=== PATIENT | male | born 1995 | race Two or more races ===

== ENCOUNTER 2018-10-02 19:19 | Inpatient (IN) | payer MEDICAID ==
[~2018-10-02] VITALS: Ht 172.7 cm; Wt 116.1 kg
[2018-10-02] MEDS ORDERED: METFORMIN HCL500 M1 ORAL (19:26)
[2018-10-02 19:32] VITALS: BP 130/63
[2018-10-02] MEDS ORDERED: Sodium Chloride 3,300 ML IVLG ONE (19:45)
[2018-10-02] MEDS ORDERED: Ketorolac 30mg Inj IV ONE (19:45)
[2018-10-02] MEDS ORDERED: Isovue-300 100ml vial INJ PRN (19:45)
--- NOTE | 2018-10-02 20:08 | NUR ---
ED Nurse Note: Patient refused pain medication, Toradol. Will waist medication.
[2018-10-02 20:25] LABS: APPEARANCE,URINE CLEAR; BILIRUBIN, URINE NEGATIVE (NEGATIVE); COLOR,URINE PALE YELLOW; GLUCOSE, URINE (UA) NEGATIVE (NEGATIVE); KETONES,URINE NEGATIVE (NEGATIVE); LEUKOCYTE ESTERASE ,URINE NEGATIVE (NEGATIVE); NITRITE,URINE NEGATIVE (NEGATIVE); PH,URINE 7 (4.5-8.0); PROTEIN,URINE NEGATIVE (NEGATIVE); UROBILINOGEN,URINE NORMAL MG/DL (0.0-1.0)
[2018-10-02 20:25] LABS: ANION GAP 11 mmol/L (5-15); BLOOD UREA NITROGEN 7 mg/dL (7-18); CARBON DIOXIDE 28 MMOL/L (21-32); CHLORIDE 101 MMOL/L (98-107); POTASSIUM 3.4 MMOL/L (3.5-5.1); SODIUM 139 MMOL/L (136-145)
[2018-10-02 20:27] LABS: HEMATOCRIT 46.4 % (42.0-52.0); HEMOGLOBIN 16.1 G/DL (14.2-18.0); MEAN CORPUSCULAR VOLUME 86 FL (80-99); PLATELET COUNT 241 K/UL (150-450); RED BLOOD COUNT 5.38 M/UL (4.70-6.10); RED CELL DISTRIBUTION WIDTH 11.5 % (11.6-14.8); WHITE BLOOD COUNT 18.2 K/UL (4.8-10.8)
[2018-10-02 20:35] LABS: ALANINE AMINOTRANSFERASE 101 U/L (12-78); ALBUMIN 4.3 G/DL (3.4-5.0); ALBUMIN/GLOBULIN RATIO 0.8 (1.0-2.7); ALKALINE PHOSPHATASE 114 U/L (46-116); ASPARTATE AMINO TRANSFERASE 29 U/L (15-37); BILIRUBIN,TOTAL 1.5 MG/DL (0.2-1.0)
[2018-10-02 20:45] LABS: BILIRUBIN,DIRECT 0.2 MG/DL (0.0-0.3)
--- NOTE | 2018-10-02 21:20 | Consultation ---
History of Present Illness General Date patient seen: October 02, 2018 Reason for Hospitalization: Abdominal Pain Present Illness HPI This is a very pleasant 22 year old male with history of DM who presented to ED with complaints of worsening abdominal pain. States pain began 1 week ago and since has worsened so he decided to come for evaluation. pain described as cramping lower abdominal pain in suprapubic and RLQ area. Initially believed he may be constipated and took laxative without relief. no n/v. subjective fevers. no similar episodes prior. on exam with RLQ tenderness. surgery called to evaluate and assist with care. patient seen, chart reviewed, patient examined. Allergies: Coded Allergies: No Known Allergies (Unverified , 10/02/18) Medication History Scheduled Metformin Hcl* (Metformin Hcl*), 500 MG ORAL TWICE A DAY, (Reported) Patient History History Provided By: Patient, Medical Record Healthcare decision maker Resuscitation status Advanced Directive on File Past Medical/Surgical History Past Medical/Surgical History: (1) Abdominal pain Review of Systems Review of Symptoms General ROS: no weight loss or fever Psychological ROS: no depression or mood changes, no memory loss Ophthalmic ROS: no visual changes or eye irritation ENT ROS: no nasal congestion, hearing loss, dizziness Allergy and Immunology ROS: no allergic symptoms or urticaria Hematological and Lymphatic ROS: no swollen glands, unusual bleeding or bruising Endocrine ROS: no polyuria, polydipsia, weight changes, temperature intolerance Respiratory ROS: no cough, shortness of breath, or wheezing Cardiovascular ROS: no chest pain or dyspnea on exertion Gastrointestinal ROS: abdominal pain, no bright red blood in stool. Musculoskeletal ROS: no myalgias or arthralgias Neurological ROS: no TIA or stroke symptoms Dermatological ROS: no new or changing skin lesions, rashes or pruritis Physical Exam Physical Exam General appearance: alert, cooperative, no distress, appears stated age Head: Normocephalic, without obvious abnormality, atraumatic Eyes: conjunctivae/corneas clear. PERRL, EOM's intact. Fundi benign Throat: Lips, mucosa, and tongue normal. Teeth and gums normal Neck: supple, symmetrical, trachea midline, no adenopathy, thyroid: not enlarged, symmetric, no tenderness/mass/nodules, no carotid bruit and no JVD Lungs: clear to auscultation bilaterally Heart: regular rate and rhythm, S1, S2 normal, no murmur, click, rub or gallop Abdomen: soft, mild RLQ tender with mild rebound. Bowel sounds normal. No masses, no organomegaly Extremities: extremities normal, atraumatic, no cyanosis or edema Pulses: 2+ and symmetric Skin: Skin color, texture, turgor normal. No rashes or lesions Neurologic: Grossly normal Last 24 Hour Vital Signs Date Time Temp Pulse Resp B/P (MAP) Pulse Ox O2 Delivery O2 Flow Rate FiO2 10/02/18 19:32 104 18 Room Air 10/02/18 19:32 101.5 18 130/63 98 Room Air 10/02/18 19:22 101.5 104 18 98 Room Air Laboratory Tests Test 10/02/18 19:35 10/02/18 19:40 White Blood Count 18.2 K/UL (4.8-10.8) H Red Blood Count 5.38 M/UL (4.70-6.10) Hemoglobin 16.1 G/DL (14.2-18.0) Hematocrit 46.4 % (42.0-52.0) Mean Corpuscular Volume 86 FL (80-99) Mean Corpuscular Hemoglobin 29.9 PG (27.0-31.0) Mean Corpuscular Hemoglobin Concent 34.6 G/DL (32.0-36.0) Red Cell Distribution Width 11.5 % (11.6-14.8) L Platelet Count 241 K/UL (150-450) Mean Platelet Volume 7.4 FL (6.5-10.1) Neutrophils (%) (Auto) % (45.0-75.0) Lymphocytes (%) (Auto) % (20.0-45.0) Monocytes (%) (Auto) % (1.0-10.0) Eosinophils (%) (Auto) % (0.0-3.0) Basophils (%) (Auto) % (0.0-2.0) Neutrophils % (Manual) Pending Lymphocytes % (Manual) Pending Platelet Estimate Pending Platelet Morphology Pending Sodium Level 139 MMOL/L (136-145) Potassium Level 3.4 MMOL/L (3.5-5.1) L Chloride Level 101 MMOL/L (98-107) Carbon Dioxide Level 28 MMOL/L (21-32) Anion Gap 11 mmol/L (5-15) Blood Urea Nitrogen 7 mg/dL (7-18) Creatinine 1.0 MG/DL (0.55-1.30) Estimat Glomerular Filtration Rate > 60 mL/min (>60) Glucose Level 111 MG/DL (74-106) H Lactic Acid Level 0.70 mmol/L (0.4-2.0) Calcium Level 10.0 MG/DL (8.5-10.1) Total Bilirubin 1.5 MG/DL (0.2-1.0) H Direct Bilirubin 0.2 MG/DL (0.0-0.3) Aspartate Amino Transf (AST/SGOT) 29 U/L (15-37) Alanine Aminotransferase (ALT/SGPT) 101 U/L (12-78) H Alkaline Phosphatase 114 U/L (46-116) Total Protein 9.5 G/DL (6.4-8.2) H Albumin 4.3 G/DL (3.4-5.0) Globulin 5.2 g/dL Albumin/Globulin Ratio 0.8 (1.0-2.7) L Lipase 98 U/L (73-393) Urine Color Pale yellow Urine Appearance Clear Urine pH 7 (4.5-8.0) Urine Specific [place] 1.005 (1.005-1.035) Urine Protein Negative (NEGATIVE) Urine Glucose (UA) Negative (NEGATIVE) Urine Ketones Negative (NEGATIVE) Urine Blood Negative (NEGATIVE) Urine Nitrite Negative (NEGATIVE) Urine Bilirubin Negative (NEGATIVE) Urine Urobilinogen Normal MG/DL (0.0-1.0) Urine Leukocyte Esterase Negative (NEGATIVE) Height (Feet): 5 Height (Inches): 8.00 Weight (Pounds): 245 Medications Current Medications Medications (Trade) Dose Ordered Sig/Carissa Route PRN Reason Start Time Stop Time Status Last Admin Dose Admin Iopamidol (Isovue-300 100ml) 100 ml NOW PRN INJ Radiology Procedure 10/02/18 19:45 Assessment/Plan Problem List: (1) Abdominal pain Assessment & Plan: 22 year old male with RLQ/suprapubic abdominal pain. no n/ v. Febrile, tachy, HD stable. Leukocytosis 18k abnormal labs CT scan ordered and pending. DDx include colitis vs appendicitis vs enteritis CT With acute appendicitis NPO IV fluids Admit to medicine IV Abx AM labs Consent To OR for lap vs open appendectomy ICD Codes: R10.9 - Unspecified abdominal pain SNOMED: [id number] Warren Moreira October 02, 2018 21:20
[2018-10-02] MEDS ORDERED: Mylanta II UD 30ml ORAL PRN (21:45)
[2018-10-02] MEDS ORDERED: Morphine Sulfate 2mg/ml Inj(IV/IM USE ONLY) IVP PRN ×3 (21:45→22:15)
[2018-10-02] MEDS ORDERED: Morphine Sulfate 4mg/ml Inj (IV USE ONLY) IVP PRN (21:45)
[2018-10-02] MEDS ORDERED: Milk of Magnesia 30ml Ud ORAL PRN (21:45)
--- NOTE | 2018-10-02 22:10 | Emergency Room Report ---
History of Present Illness General Chief Complaint: Abdominal Pain Source: Patient, Medical Record Present Illness HPI 22-year-old male presents ED for evaluation. Complaining of abdominal pain started one week ago. Pain is localized to right lower quadrant, sharp, 9 out of 10, nonradiating. Also noted having fever previously. febrile in triage. Denies chest pain or shortness of breath. Denies any diarrhea. No other aggravating relieving factors. Denies any other associated symptoms Allergies: Coded Allergies: No Known Allergies (Unverified , 10/02/18) Patient History Past Medical History: DM Past Surgical History: none Pertinent Family History: none Social History: Denies: smoking, alcohol use, drug use Immunizations: UTD Reviewed Nursing Documentation: PMH: Agreed; PSxH: Agreed Nursing Documentation-PMH Hx Diabetes: Yes Review of Systems All Other Systems: negative except mentioned in HPI Physical Exam Vital Signs Date Time Temp Pulse Resp B/P (MAP) Pulse Ox O2 Delivery O2 Flow Rate FiO2 10/02/18 19:22 101.5 104 18 98 Room Air 10/02/18 19:32 130/63 Sp02 EP Interpretation: reviewed, normal General Appearance: no apparent distress, alert, GCS 15, non-toxic Head: normocephalic, atraumatic Eyes: bilateral eye normal inspection, bilateral eye PERRL ENT: hearing grossly normal, normal pharynx, no angioedema, normal voice Neck: full range of motion, supple/symm/no masses Respiratory: chest non-tender, lungs clear, normal breath sounds, speaking full sentences Cardiovascular #1: regular rate, rhythm, no edema Cardiovascular #2: 2+ carotid (R), 2+ carotid (L), 2+ radial (R), 2+ radial (L) , 2+ dorsalis pedis (R), 2+ dorsalis pedis (L) Gastrointestinal: normal bowel sounds, soft, non-distended, no guarding, no rebound, tenderness - RLQ Rectal: deferred Genitourinary: normal inspection, no CVA tenderness Musculoskeletal: back normal, gait/station normal, normal range of motion, non- tender Neurologic: alert, oriented x3, responsive, motor strength/tone normal, sensory intact, speech normal Psychiatric: judgement/insight normal, memory normal, mood/affect normal, no suicidal/homicidal ideation Reflexes: 3+ bicep (R), 3+ bicep (L), 3+ tricep (R), 3+ tricep (L), 3+ knee (R) , 3+ knee (L) Skin: normal color, no rash, warm/dry, well hydrated Lymphatic: no adenopathy Medical Decision Making Diagnostic Impression: Primary Impression: Appendicitis Qualified Codes: K35.80 - Unspecified acute appendicitis ER Course Hospital Course 22-year-old M presents to ED with RLQ pain with fever Differential diagnoses include: Appendicitis, cholecystitis, small bowel obstruction Clinical course Patient placed on stretcher. cafeteria monitor. After initial history and physical I ordered labs, IV fluids, UA, pain medication and CT scan Labs - leukocytosis noted, Hb/Hct stable. electrolytes ok. CT abdomen and pelvis - appendicits Antibiotics given. Case discussed with Dr. Moreira and he agreed to take the patient to the OR. Case discussed with Dr. Meza and he agreed to accept the patient to his service for further care and support I feel this is a highly complex case requiring extensive working including EKG/ Rhythm strip, Xray/CT/US, Blood/urine lab work, repeat exams while in ED, and administration of strong opiates/narcotics for pain control, admission to hospital or close patient follow up. Diagnosis - appendicitis admitted to floor in serious condition Labs Test 10/02/18 19:35 10/02/18 19:40 White Blood Count 18.2 K/UL (4.8-10.8) Red Blood Count 5.38 M/UL (4.70-6.10) Hemoglobin 16.1 G/DL (14.2-18.0) Hematocrit 46.4 % (42.0-52.0) Mean Corpuscular Volume 86 FL (80-99) Mean Corpuscular Hemoglobin 29.9 PG (27.0-31.0) Mean Corpuscular Hemoglobin Concent 34.6 G/DL (32.0-36.0) Red Cell Distribution Width 11.5 % (11.6-14.8) Platelet Count 241 K/UL (150-450) Mean Platelet Volume 7.4 FL (6.5-10.1) Neutrophils (%) (Auto) % (45.0-75.0) Lymphocytes (%) (Auto) % (20.0-45.0) Monocytes (%) (Auto) % (1.0-10.0) Eosinophils (%) (Auto) % (0.0-3.0) Basophils (%) (Auto) % (0.0-2.0) Differential Total Cells Counted 100 Neutrophils % (Manual) 84 % (45-75) Lymphocytes % (Manual) 12 % (20-45) Monocytes % (Manual) 4 % (1-10) Eosinophils % (Manual) 0 % (0-3) Basophils % (Manual) 0 % (0-2) Band Neutrophils 0 % (0-8) Platelet Estimate Adequate Platelet Morphology Normal Red Blood Cell Morphology Normal Sodium Level 139 MMOL/L (136-145) Potassium Level 3.4 MMOL/L (3.5-5.1) Chloride Level 101 MMOL/L (98-107) Carbon Dioxide Level 28 MMOL/L (21-32) Anion Gap 11 mmol/L (5-15) Blood Urea Nitrogen 7 mg/dL (7-18) Creatinine 1.0 MG/DL (0.55-1.30) Estimat Glomerular Filtration Rate > 60 mL/min (>60) Glucose Level 111 MG/DL (74-106) Lactic Acid Level 0.70 mmol/L (0.4-2.0) Calcium Level 10.0 MG/DL (8.5-10.1) Total Bilirubin 1.5 MG/DL (0.2-1.0) Direct Bilirubin 0.2 MG/DL (0.0-0.3) Aspartate Amino Transf (AST/SGOT) 29 U/L (15-37) Alanine Aminotransferase (ALT/SGPT) 101 U/L (12-78) Alkaline Phosphatase 114 U/L (46-116) Total Protein 9.5 G/DL (6.4-8.2) Albumin 4.3 G/DL (3.4-5.0) Globulin 5.2 g/dL Albumin/Globulin Ratio 0.8 (1.0-2.7) Lipase 98 U/L (73-393) Urine Color Pale yellow Urine Appearance Clear Urine pH 7 (4.5-8.0) Urine Specific [place] 1.005 (1.005-1.035) Urine Protein Negative (NEGATIVE) Urine Glucose (UA) Negative (NEGATIVE) Urine Ketones Negative (NEGATIVE) Urine Blood Negative (NEGATIVE) Urine Nitrite Negative (NEGATIVE) Urine Bilirubin Negative (NEGATIVE) Urine Urobilinogen Normal MG/DL (0.0-1.0) Urine Leukocyte Esterase Negative (NEGATIVE) CT/MRI/US Diagnostic Results CT/MRI/US Diagnostic Results : Imaging Test Ordered: CT A/P Impression 1.5 cm appendix thickened. No abscess. Last Vital Signs Date Time Temp Pulse Resp B/P (MAP) Pulse Ox O2 Delivery O2 Flow Rate FiO2 10/02/18 19:32 104 18 Room Air 10/02/18 19:32 101.5 130/63 98 Status: improved Disposition: ADMITTED INPATIENT Condition: Serious Referrals: [facility],REFERRING (PCP) Bravo Schuster MD October 02, 2018 22:10
[2018-10-02] MEDS ORDERED: Piperacillin/Tazobactam 3.375 GM in NS 110 ML IVPB ONE (22:15)
[2018-10-02 23:14] VITALS: BP 141/82
--- NOTE | 2018-10-02 23:15 | NUR ---
NURSE NOTES: Pt transported to unit from ER via w/c w/belongings accounted for and family at bedside. Pt A&Ox4, VSS, and in no apparent distress at this time; pt c/o 4/10 abdominal pain but would not like any analgesics at this time. IV site intact/asymptomatic & skin intact. Will continue to monitor.
[2018-10-02] MEDS ORDERED: ATORVASTATIN CA20 MG ORAL (23:24)
--- NOTE | 2018-10-02 23:30 | NUR ---
NURSE NOTES: Left vm for Dr. Meza re:pt's home meds; will await call back.
[2018-10-03] VITALS (16 sets, daily range): BP systolic 121–142; BP diastolic 57–92
[2018-10-03] MEDS: Piperacillin/Tazobactam 3.375 GM in NS 110 ML IVPB SCH ×3 (06:03→20:49)
[2018-10-03 06:23] LABS: BASOPHILS % (AUTO) 0.5 % (0.0-2.0); EOSINOPHILS % (AUTO) 0.1 % (0.0-3.0); HEMATOCRIT 43.4 % (42.0-52.0); LYMPHOCYTES % (AUTO) 9.5 % (20.0-45.0); MEAN CORPUSCULAR VOLUME 89 FL (80-99); MONOCYTES % (AUTO) 7.6 % (1.0-10.0); NEUTROPHILS % (AUTO) 82.3 % (45.0-75.0); PLATELET COUNT 223 K/UL (150-450); RED CELL DISTRIBUTION WIDTH 11.6 % (11.6-14.8); WHITE BLOOD COUNT 17.9 K/UL (4.8-10.8)
[2018-10-03 06:49] LABS: ALANINE AMINOTRANSFERASE 81 U/L (12-78); ALBUMIN 3.7 G/DL (3.4-5.0); ALBUMIN/GLOBULIN RATIO 0.8 (1.0-2.7); ALKALINE PHOSPHATASE 99 U/L (46-116); ANION GAP 9 mmol/L (5-15); ASPARTATE AMINO TRANSFERASE 24 U/L (15-37); BILIRUBIN,TOTAL 1.8 MG/DL (0.2-1.0); CALCIUM 9.5 MG/DL (8.5-10.1); CARBON DIOXIDE 28 MMOL/L (21-32); CHLORIDE 103 MMOL/L (98-107); CREATININE 0.8 MG/DL (0.55-1.30); POTASSIUM 3.9 MMOL/L (3.5-5.1); SODIUM 140 MMOL/L (136-145)
[2018-10-03 06:51] LABS: BILIRUBIN,DIRECT 0.2 MG/DL (0.0-0.3)
[2018-10-03 06:54] LABS: BLOOD UREA NITROGEN 5 mg/dL (7-18)
--- NOTE | 2018-10-03 07:40 | NUR ---
HAND-OFF: Report given to Patricio Nicole RN.
--- NOTE | 2018-10-03 07:45 | NUR ---
NURSE NOTES: Patient sitting in bed awake. Complain of mild pain and will continue to monitor. Skin intact and dry. IV dressing intact and dry. Bed lowest position. Call light within reach. Will continue to monitor.
--- NOTE | 2018-10-03 09:14 | Diagnostic Imaging Report ---
Indication: Abdominal pain Technique: Continuous helical transaxial imaging of the abdomen and pelvis was obtained from the lung bases to the pubic symphysis during intravenous contrast administration. Coronal 2-D reformats were also obtained. Study obtained in a Siemens sensation [address] Automatic Exposure Control was utilized. Total Dose length Product (DLP): 1093.[address] Dose Index Volume (CTDIvol): 18.6 mGy Comparison: None Findings: There is a moderate degree of inflammation in the right lower quadrant surrounding a dilated appendix measuring 1.4 cm in diameter. The wall of the appendix is ill-defined, enhancing and there is some fluid accumulated within the retrovesical space likely associated with the inflammation. There is no abscess identified. Small lymph nodes are seen in the mesentery likely reactive. The remainder the examination is normal. The gallbladder, liver and spleen, pancreas, adrenal glands and kidneys appear normal. There is no hydronephrosis. Bowel gas pattern is nonobstructive. Lung bases are clear. Bladder is unremarkable. IMPRESSION: Acute appendicitis with moderate inflammation. The appendix may be ruptured. Critical value communication. Findings were discussed via telephone with Dr. Schuster in the emergency department 21:31, 10/02/2018. The CT scanner at [facility] is accredited by the [employer] and the scans are performed using dose optimization techniques as appropriate to a performed exam including Automatic Exposure control.
--- NOTE | 2018-10-03 09:54 | NUR ---
NURSE NOTES: Patient off unit for surgery in stable condition. IV patent.
[2018-10-03] MEDS ORDERED: cefOXitin 2gm Inj ONE (10:43)
[2018-10-03] MEDS ORDERED: Rocuronium Bromide 50mg/5ml Inj IV ONE (10:43)
[2018-10-03] MEDS ORDERED: fentaNYL 100 mcg/2 mL IV ONE (10:44)
[2018-10-03] MEDS ORDERED: Midazolam 2mg/2ml Inj ONE (10:44)
[2018-10-03] MEDS ORDERED: Lidocaine 1% MPF 10mg/ml 5ml ONE (10:45)
[2018-10-03] MEDS ORDERED: Propofol 200mg/20ml IV ONE (10:45)
[2018-10-03] MEDS: NovoLOG Insulin Flexpen SUBQ SCH ×4 (11:30→20:44)
[2018-10-03] MEDS ORDERED: Morphine Sulfate 10mg/ml Inj ONE (11:41)
[2018-10-03] MEDS ORDERED: Glycopyrrolate 0.2mg/ml 1ml Vial ONE (11:43)
[2018-10-03] MEDS ORDERED: LR 1000ml 1,000 ML IVLG SCH (11:48)
--- NOTE | 2018-10-03 11:48 | Anethesia Preoperative Eval ---
Anesthesia Pre-op PMH/ROS General Date of Evaluation: October 03, 2018 Time of Evaluation: 10:50 Anesthesiologist: Gerald ASA Score: ASA 3 Mallampati Score Class I : Soft palate, uvula, fauces, pillars visible Class II: Soft palate, uvula, fauces visible Class III: Soft palate, base of uvula visible Class IV: Only hard plate visible Mallampati Classification: Class III Surgeon: Erlinda Diagnosis: Acute appendicitis Surgical Procedure: Appendectomy Anesthesia History: none Family History: no anesthesia problems Allergies: Coded Allergies: No Known Allergies (Unverified , 10/02/18) Medications: see eMAR Patient NPO?: Yes NPO Date: October 03, 2018 NPO Time: 0000 Past Medical History Cardiovascular: Reports: HTN; Denies: CAD, MO, valve dz, arrhythmia, other Pulmonary: Reports: RAMESH; Denies: asthma, COPD, other Gastrointestinal/Genitourinary: Reports: GERD; Denies: CRI, ESRD, other Neurologic/Psychiatric: Denies: dementia, CVA, depression/anxiety, TIA, other Endocrine: Reports: DM; Denies: hypothyroidism, steroids, other HEENT: Denies: cataract (L), cataract (R), glaucoma, DEERING (L), DEERING (R), other Hematology/Immune: Denies: anemia, DVT, bleeding disorder, other Musculoskeletal/Integumentary: Denies: OA, RA, DJD, DDD, edema, other Other: obesity PMH Narrative: as above admitted for acute abdominal pain PSxH Narrative: None Anesthesia Pre-op Phys. Exam Physician Exam Last Vital Signs Date Time Temp Pulse Resp B/P (MAP) Pulse Ox O2 Delivery O2 Flow Rate FiO2 10/03/18 09:00 Room Air 10/03/18 08:00 99.4 98 19 136/81 (99) 99 Constitutional: NAD Neurologic: CN 2-12 intact Cardiovascular: RRR Respiratory: CTA Gastrointestinal: other - tender Airway Exam Mallampati Score: Class III MO: full Neck: short Teeth: intact Dentures: no upper, no lower Anesthesia Pre-op A/P Labs Hematology Test 10/02/18 19:35 10/03/18 05:30 White Blood Count 18.2 K/UL (4.8-10.8) H 17.9 K/UL (4.8-10.8) H Red Blood Count 5.38 M/UL (4.70-6.10) 4.90 M/UL (4.70-6.10) Hemoglobin 16.1 G/DL (14.2-18.0) 15.0 G/DL (14.2-18.0) Hematocrit 46.4 % (42.0-52.0) 43.4 % (42.0-52.0) Mean Corpuscular Volume 86 FL (80-99) 89 FL (80-99) Mean Corpuscular Hemoglobin 29.9 PG (27.0-31.0) 30.7 PG (27.0-31.0) Mean Corpuscular Hemoglobin Concent 34.6 G/DL (32.0-36.0) 34.6 G/DL (32.0-36.0) Red Cell Distribution Width 11.5 % (11.6-14.8) L 11.6 % (11.6-14.8) Platelet Count 241 K/UL (150-450) 223 K/UL (150-450) Mean Platelet Volume 7.4 FL (6.5-10.1) 8.6 FL (6.5-10.1) Neutrophils (%) (Auto) % (45.0-75.0) 82.3 % (45.0-75.0) H Lymphocytes (%) (Auto) % (20.0-45.0) 9.5 % (20.0-45.0) L Monocytes (%) (Auto) % (1.0-10.0) 7.6 % (1.0-10.0) Eosinophils (%) (Auto) % (0.0-3.0) 0.1 % (0.0-3.0) Basophils (%) (Auto) % (0.0-2.0) 0.5 % (0.0-2.0) Differential Total Cells Counted 100 Neutrophils % (Manual) 84 % (45-75) H Lymphocytes % (Manual) 12 % (20-45) L Monocytes % (Manual) 4 % (1-10) Eosinophils % (Manual) 0 % (0-3) Basophils % (Manual) 0 % (0-2) Band Neutrophils 0 % (0-8) Platelet Estimate Adequate Platelet Morphology Normal Red Blood Cell Morphology Normal Coagulation Test 10/03/18 05:30 Prothrombin Time 10.8 SEC (9.30-11.50) Prothromb Time International Ratio 1.0 (0.9-1.1) Activated Partial Thromboplast Time 33 SEC (23-33) Chemistry Test 10/02/18 19:35 10/03/18 05:30 Sodium Level 139 MMOL/L (136-145) 140 MMOL/L (136-145) Potassium Level 3.4 MMOL/L (3.5-5.1) L 3.9 MMOL/L (3.5-5.1) Chloride Level 101 MMOL/L (98-107) 103 MMOL/L (98-107) Carbon Dioxide Level 28 MMOL/L (21-32) 28 MMOL/L (21-32) Anion Gap 11 mmol/L (5-15) 9 mmol/L (5-15) Blood Urea Nitrogen 7 mg/dL (7-18) 5 mg/dL (7-18) L Creatinine 1.0 MG/DL (0.55-1.30) 0.8 MG/DL (0.55-1.30) Estimat Glomerular Filtration Rate > 60 mL/min (>60) > 60 mL/min (>60) Glucose Level 111 MG/DL (74-106) H 117 MG/DL (74-106) H Lactic Acid Level 0.70 mmol/L (0.4-2.0) Calcium Level 10.0 MG/DL (8.5-10.1) 9.5 MG/DL (8.5-10.1) Total Bilirubin 1.5 MG/DL (0.2-1.0) H 1.8 MG/DL (0.2-1.0) H Direct Bilirubin 0.2 MG/DL (0.0-0.3) 0.2 MG/DL (0.0-0.3) Aspartate Amino Transf (AST/SGOT) 29 U/L (15-37) 24 U/L (15-37) Alanine Aminotransferase (ALT/SGPT) 101 U/L (12-78) H 81 U/L (12-78) H Alkaline Phosphatase 114 U/L (46-116) 99 U/L (46-116) Total Protein 9.5 G/DL (6.4-8.2) H 8.3 G/DL (6.4-8.2) H Albumin 4.3 G/DL (3.4-5.0) 3.7 G/DL (3.4-5.0) Globulin 5.2 g/dL 4.6 g/dL Albumin/Globulin Ratio 0.8 (1.0-2.7) L 0.8 (1.0-2.7) L Lipase 98 U/L (73-393) Hemoglobin A1c 5.9 % (4.3-6.0) Risk Assessment & Plan Assessment: GA with ETT PONV prevention Status Change Before Surgery: No Pre-Antibiotics Drug: Cefoxitin 2gr. Given Within 1 Hr of Incision: Yes Time Given: 11:20 Edward Duarte MD October 03, 2018 11:48
[2018-10-03] MEDS ORDERED: Meperidine 50mg/ml Inj(FOR RIGORS ONLY) IV PRN (12:00)
[2018-10-03] MEDS ORDERED: Metoclopramide 10mg/2ml Inj IVP PRN (12:00)
[2018-10-03] MEDS ORDERED: Hydromorphone 0.5mg/0.5ml inj IVP PRN (12:00)
[2018-10-03] MEDS ORDERED: Ketorolac 30mg Inj IV PRN (12:00)
--- NOTE | 2018-10-03 12:19 | NUR ---
[employer] 22 Y/O MALE FROM HOME CAME TO [facility] [place] ER CC:ABNORMAL PAIN SI:APPENDICITIS S/P LAPAROSCOPIC APPENDECTOMY VS: BP 130/63, P 104, T 101.4, RR 22, SpO2 98 WBC 18.2, K 3.4, ABDOMINAL CT: Acute appendicitis with moderate inflammation. The appendix may be ruptured. IS:NS x3.3L IVLG TORADOL 30mg IV ZOSYN 110ml IVPB ADMITTED TO MED/SURG DCP: RETURN HOME
--- NOTE | 2018-10-03 12:24 | Immediate Post-Op Evaluation ---
Immediate Post-Op Evalulation Immediate Post-Op Evalulation Procedure: Laparoscopic appendectomy Date of Evaluation: October 03, 2018 Time of Evaluation: 12:22 IV Fluids: 800 Blood Products: none Estimated Blood Loss: 50 Urinary Output: none Blood Pressure Systolic: 140 Blood Pressure Diastolic: 82 Pulse Rate: 92 Respiratory Rate: 22 O2 Sat by Pulse Oximetry: 98 Temperature (Fahrenheit): 97.7 Pain Score (1-10): 1 Nausea: No Vomiting: No Complications none Patient Status: reacts, patent, extubated, none Hydration Status: adequate Edward Duarte MD October 03, 2018 12:24
--- NOTE | 2018-10-03 12:46 | Brief Operative Note ---
Immediate Post Operative Note Operative Note Pre-op Diagnosis: acute appendicitis Procedure: lap appy Post-op Diagnosis: acute perforated appendicitis Surgeon: jacinto Anesthesiologist: dawood Anesthesia: general Specimen: yes Complications: none Condition: stable Fluids: see records Estimated Blood Loss: minimal Drains: none Implant(s) used?: No Warren Moreira October 03, 2018 12:46
--- NOTE | 2018-10-03 13:34 | Pre-Procedure Note/Attestation ---
Pre-Procedure Note/Attestation Complete Prior to Procedure Procedure Narrative: lap appy Indications for Procedure Pre-Operative Diagnosis: acute appendicitis Attestation I attest that I discussed the nature of the procedure; its benefits; risks and complications; and alternatives (and the risks and benefits of such alternatives ), prior to the procedure, with the patient (or the patient's legal loan representative). I attest that, if there was a reasonable possibility of needing a blood transfusion, the patient (or the patient's legal loan representative) was given the [facility] standardized written summary, pursuant to the Reza Rodriguez Blood Safety Act ([place] Health and Safety Code # 1645, as amended). I attest that I re-evaluated the patient just prior to the surgery and that there has been no change in the patient's H&P, except as documented below: Warren Moreira October 03, 2018 13:34
--- NOTE | 2018-10-03 13:40 | NUR ---
NURSE NOTES: Patient came back to unit in stable condition. Surgical dressing intact and dry. No complain of pain or distress at this time. IV dressing intact and dry. Bed lowest position. Call light within reach. Will continue to monitor.
[2018-10-03] MEDS: HYDROcodone/Acetamin 10/325 tab ORAL PRN ×2 (14:09→19:53)
--- NOTE | 2018-10-03 14:10 | NUR ---
*-* INSURANCE *-* ALL CLINICALS AND REVIEWS HAVE BEEN FAXED TO: NOHEMI WILSON: MARY P- [phone] F- [phone]........... REVIEW/CLINICAL
--- NOTE | 2018-10-03 16:15 | History and Physical Report ---
DATE OF ADMISSION: 10/02/2018 REASON FOR ADMISSION: 1. Abdominal pain. 2. Acute appendicitis. HISTORY OF PRESENT ILLNESS: The patient is a pleasant 22-year-old gentleman who presented overnight for urgent care of abdominal pain. It has been localized in the right lower quadrant, 9/10 pain. Nonradiating in nature. No current nausea, vomiting, or diarrhea. No chest pain. No palpitations. Noted to have acute appendicitis and was admitted for evaluation. ALLERGIES: No known drug allergies. PAST MEDICAL HISTORY: Diabetes. PAST SURGICAL HISTORY: None. SOCIAL HISTORY: No tobacco, alcohol, or illicit drug use. FAMILY HISTORY: Positive for diabetes and hypertension. REVIEW OF SYSTEMS: NEUROLOGIC: The patient denies headache, change in vision, syncope, or presyncopal episodes. CARDIOVASCULAR: No current chest pain, palpitations, or angina. PULMONARY: No difficulty breathing or productive sputum. GASTROINTESTINAL/GENITOURINARY: The patient having right lower quadrant abdominal pain. No nausea, vomiting, or diarrhea. ENDOCRINOLOGY: No night sweats, fevers, or chills. LABORATORY DATA: Labs dated 10/03/2018, sodium 140, potassium 3.9, chloride 0.8. White cell count 17.9, hemoglobin 15, platelet count 223. PHYSICAL EXAMINATION: VITAL SIGNS: Blood pressure 136/81, respiratory rate 19, pulse 98, temperature 99.4, 99% oxygen saturation on room air. GENERAL: The patient awake, alert, not otherwise in distress. HEENT: Extraocular muscles intact. No lymphadenopathy noted. CARDIOVASCULAR: S1 and S2. No rubs or gallops. PULMONARY: Clear to auscultation bilaterally. No rales, rhonchi, or wheezes. ABDOMEN: Mild tenderness, right lower quadrant. EXTREMITIES: No edema. ASSESSMENT AND PLAN: 1. Abdominal pain secondary to appendicitis. Please refer to #2. 2. Acute appendicitis. The patient was given IV antibiotics overnight, placed on an NPO status, and is pending appendectomy later this morning. 3. Diabetes mellitus. We will continue metformin and Accu-Cheks. 4. DVT prophylaxis with SCDs. Lenin Meza MD DR: SADAF :39 JOB#: [id number] CC:
--- NOTE | 2018-10-03 18:15 | NUR ---
NURSE NOTES: Patient having fever. Notified Dr. Moreira and no new order at this time. Tylenol given as ordered. Will continue to monitor.
--- NOTE | 2018-10-03 18:45 | Operative Note - Dictated ---
DATE OF OPERATION: 10/03/2018 PREOPERATIVE DIAGNOSIS: Acute appendicitis. POSTOPERATIVE DIAGNOSIS: Acute perforated appendicitis. OPERATION PERFORMED: Laparoscopic appendectomy. ATTENDING SURGEON: Warren Moreira M.D. RUBY ON RAILS ENGINEER: None. ANESTHESIOLOGIST: Edward Duarte MD. ANESTHESIA: General GETA. ESTIMATED BLOOD LOSS: Minimal. IV FLUIDS: Please see the anesthesia records. COMPLICATIONS: None. DRAINS: None. COUNTS: Sponge and needle count correct x2. WOUND CLASSIFICATION: Class 3. ANTIBIOTICS: The patient on scheduled IV antibiotics for acute active inflammatory process. INDICATIONS FOR PROCEDURE: This is a 22-year-old male who presented to the emergency department [facility] complaining worsening lower abdominal pain radiating to the right lower quadrant. The patient states the pain was for approximately a week and was identified to have a leukocytosis and CT scan consistent with acute appendicitis. Risks, benefits, and alternatives of surgery were discussed with the patient in detail who expressed understanding and consented to surgery, which was indicated and recommended. OPERATIVE NOTE: The patient was taken to the operating room and placed on the operating table in supine position with left arm tucked. All bony prominences were well padded. SCDs were placed. Preoperative time-out was taken in identifying the patient, procedure, operative staff, and surgical staff. General anesthesia was induced and the patient was intubated. No Dejesus catheter was inserted given the patient voided prior to entering the operating room. Abdomen was clipped, prepped, and draped in standard surgical fashion. An infraumbilical incision was made using a fresh #11 scalpel and carried down to the fascia which was elevated and incised. Entry into the abdomen was obtained using the open technique. A 12 mm Gary trocar was inserted and the abdomen was insufflated to 12 to 15 mmHg. The patient tolerated the insufflation well. The patient was positioned in the reverse Trendelenburg with left side down. The abdomen was inspected. In the right lower quadrant, there was a thickened inflammatory omentum draped over the right lower quadrant. Secondary trocars placed under direct visualization beginning with a 12 mm left lower quadrant followed by 5 mm suprapubic. Laparoscopic graspers were used and the omentum draped over the right lower quadrant was gently dissected off. Underlying was a appendix with mid-appendiceal perforation and some purulent succus identified. This was evacuated. Following this, the appendix was grasped and gently dissected out until the base could be identified at the confluence of the tenia. Window was made at the base of the appendix and a laparoscopic linear stapler was used and the base was divided. Following this, laparoscopic linear stapler was then used to divide the mesoappendix. Hemostasis was achieved with laparoscopic clips after the stapler was fired and there was still some oozing. Once hemostasis was identified, the pelvis and right lower quadrant were irrigated and suctioned clean. At this time, no other abnormalities were noted. Good hemostasis was noted. The staple line of the appendiceal base and mesoappendix with clips were identified with good hemostasis and viable staple line. At this time, we began the conclusion of our procedure. The appendix was placed in endoscopic retrieval bag and removed from the abdomen using the left lower quadrant port site. Secondary trocars removed under direct visualization followed by the umbilical trocar site. The umbilical trocar site fascia and left lower quadrant port site fascia were reapproximated using [id number] #0 Vicryl suture. Remaining skin incisions were cleansed and reapproximated using 4-0 Monocryl subcuticular interrupted sutures. Steri-Strips and dry dressings were applied. The patient tolerated the procedure well, was extubated and taken to postanesthetic care unit in stable condition. Warren Moreira M.D. DR: Idania JOB#: [id number] CC:
--- NOTE | 2018-10-03 19:30 | NUR ---
HAND-OFF: Report given to Jeanie NOVAK. Patient in stable condition.
--- NOTE | 2018-10-03 19:40 | NUR ---
NURSE NOTES: Received a report from KISHORE Curry. AAOX4. Able to make needs known. IV site is patent and intact. On room air. 3 surgical dressings noted on the abdomen, intact and no bleeding. Bed in lowest position. Call light within reach. Will continue to monitor.
[2018-10-04 04:00] VITALS: BP 118/82
[2018-10-04] MEDS: Piperacillin/Tazobactam 3.375 GM in NS 110 ML IVPB SCH ×3 (05:00→22:02)
[2018-10-04 06:24] LABS: HEMATOCRIT 43.6 % (42.0-52.0); HEMOGLOBIN 14.9 G/DL (14.2-18.0); MEAN CORPUSCULAR VOLUME 89 FL (80-99); PLATELET COUNT 222 K/UL (150-450); RED CELL DISTRIBUTION WIDTH 11.9 % (11.6-14.8); WHITE BLOOD COUNT 21.4 K/UL (4.8-10.8)
[2018-10-04] MEDS: NovoLOG Insulin Flexpen SUBQ SCH ×4 (06:30→21:00)
[2018-10-04 06:34] LABS: ANION GAP 8 mmol/L (5-15); BLOOD UREA NITROGEN 6 mg/dL (7-18); CALCIUM 9.5 MG/DL (8.5-10.1); CARBON DIOXIDE 29 MMOL/L (21-32); CHLORIDE 103 MMOL/L (98-107); POTASSIUM 3.8 MMOL/L (3.5-5.1); SODIUM 140 MMOL/L (136-145)
[2018-10-04] MEDS: HYDROcodone/Acetamin 10/325 tab ORAL PRN ×3 (06:55→13:43)
--- NOTE | 2018-10-04 07:10 | NUR ---
HAND-OFF: Report given to KISHORE Alfaro.
--- NOTE | 2018-10-04 07:30 | NUR ---
NURSE NOTES: Received pt from KISHORE NEGRO. Pt is alert and orient x4. pt is in RA, No SOB or acute respiratory distress noted. pt has intact iv access RAC 20G SL. All needs attended, bed is locked and is in the lowest position, call light within easy reach. will continue to monitor.
[2018-10-04 08:00] VITALS: BP 127/87
--- NOTE | 2018-10-04 08:43 | Nephrology Progress Note ---
Assessment/Plan Assessment/Plan: A/P 1) Abd Pain- please refer to #2 2) Appendicitis- s/p appy - Zosyn, WBC still elevated - per surgery 3) DVT prophylaxsis with ambulation and SCDs Subjective Date patient seen: October 04, 2018 Time patient seen: 08:41 ROS Limited/Unobtainable: No Allergies: Coded Allergies: No Known Allergies (Unverified , 10/02/18) Subjective Patient ambulating in room Objective Last 24 Hour Vital Signs Date Time Temp Pulse Resp B/P (MAP) Pulse Ox O2 Delivery O2 Flow Rate FiO2 10/04/18 08:00 98.0 76 19 127/87 (100) 99 10/04/18 07:25 98.8 10/04/18 04:00 98.8 90 18 118/82 (94) 97 10/04/18 00:29 99.6 10/03/18 23:54 100.0 116 17 130/84 (99) 95 10/03/18 21:00 Room Air 10/03/18 20:00 100.6 118 18 128/88 (101) 94 10/03/18 16:00 99.3 106 20 139/68 (91) 95 10/03/18 14:45 97.3 114 20 129/68 (88) 95 10/03/18 14:15 97.3 109 18 142/72 (95) 95 10/03/18 13:45 97.9 79 19 121/57 (78) 95 10/03/18 13:30 97.4 10/03/18 13:18 99.2 94 17 126/67 99 Nasal Cannula 3 10/03/18 13:10 91 16 140/85 100 Nasal Cannula 3 10/03/18 13:00 71 17 142/92 100 Nasal Cannula 3 10/03/18 12:55 73 15 128/74 100 Nasal Cannula 3 10/03/18 12:45 79 16 128/74 100 Simple Mask 6 10/03/18 12:30 82 15 129/79 100 Simple Mask 6 10/03/18 12:25 89 20 140/82 100 Simple Mask 6 10/03/18 12:24 92 22 98 10/03/18 12:23 97.7 99 18 138/87 100 Simple Mask 6 10/03/18 09:00 Room Air Intake and Output 10/03/18 10/04/18 18:59 06:59 Intake Total 1340 ml 580 ml Output Total 20 ml Balance 1320 ml 580 ml Intake Oral 240 ml 360 ml IV Total 1100 ml 220 ml Output Estimated Blood Loss 20 ml # Voids 1 3 # Bowel Movements 1 Laboratory Tests 10/04/18 05:25: White Blood Count 21.4H, Red Blood Count 4.90, Hemoglobin 14.9, Hematocrit 43.6 , Mean Corpuscular Volume 89, Mean Corpuscular Hemoglobin 30.4, Mean Corpuscular Hemoglobin Concent 34.2, Red Cell Distribution Width 11.9, Platelet Count 222, Mean Platelet Volume 8.3, Neutrophils (%) (Auto) , Lymphocytes (%) ( Auto) , Monocytes (%) (Auto) , Eosinophils (%) (Auto) , Basophils (%) (Auto) , Neutrophils % (Manual) [Pending], Lymphocytes % (Manual) [Pending], Platelet Estimate [Pending], Platelet Morphology [Pending], Sodium Level 140, Potassium Level 3.8, Chloride Level 103, Carbon Dioxide Level 29, Anion Gap 8, Blood Urea Nitrogen 6L, Creatinine 1.0, Estimat Glomerular Filtration Rate > 60, Glucose Level 121H, Calcium Level 9.5 Height (Feet): 5 Height (Inches): 8.00 Weight (Pounds): 256 General Appearance: no apparent distress, alert EENT: normal ENT inspection Neck: normal alignment, supple Cardiovascular: normal rate, regular rhythm Respiratory/Chest: lungs clear, normal breath sounds Abdomen: non tender, soft Edema: no edema noted Arm (L), no edema noted Arm (R), no edema noted Leg (L), no edema noted Leg (R), no edema noted Pedal (L), no edema noted Pedal (R), no edema noted Generalized Lenin Meza MD October 04, 2018 08:43
[2018-10-04] MEDS ORDERED: Labetalol 5mg/ml 20ml vial IV ONE (10:58)
[2018-10-04] MEDS ORDERED: Sterile Water Irrig 1000ml IRRIG ONE (10:58)
[2018-10-04] MEDS ORDERED: Propofol 200mg/20ml IV ONE (10:58)
[2018-10-04] MEDS ORDERED: NS Irrig 1000ml ONE (10:58)
[2018-10-04] MEDS ORDERED: Ketorolac 30mg Inj ONE (10:58)
--- NOTE | 2018-10-04 11:00 | 48 Hour Post Anesthesia Eval ---
Post Anesthesia Evaluation Procedure: Laparoscopic appendectomy Date of Evaluation: October 04, 2018 Airway: patent Nausea: No Vomiting: No Pain Intensity: 2 Hydration Status: adequate Cardiopulmonary Status: at baseline Mental Status/LOC: patient returned to baseline Post-Anesthesia Complications: 0 Follow-up care needed: N/A - further care as per primary team Isa Blevins MD October 04, 2018 11:00
[2018-10-04 12:00] VITALS: BP 141/97
--- NOTE | 2018-10-04 13:38 | NUR ---
FUEL AGENTDECISION SUPPORT MANAGER SI:APPENDICITIS S/P LAPAROSCOPIC APPENDECTOMY VS: BP 141/97, P 109, T 98.1, RR 20, SpO2 96 WBC 21.4, BUN 6 IS:NORCO 1tab ZOSYN 110ml IVPB 3E MED/SURG STATUS
--- NOTE | 2018-10-04 14:41 | NUR ---
NURSE NOTES: Dr BO is aware about WBC and other lab results and V/S, no new order. will continue to monitor.
--- NOTE | 2018-10-04 14:55 | NUR ---
*-* INSURANCE *-* ALL CLINICALS AND REVIEWS HAVE BEEN FAXED TO: NOHEMI WILSON: MARY P- [phone] 1924 F- [phone]........... REVIEW/CLINICAL
[2018-10-04 16:00] VITALS: BP 144/97
--- NOTE | 2018-10-04 16:39 | General Progress Note ---
Progress Note Progress Note Surgery Afebrile, Tachy, HD stable, Exam improved. Tolerating diet. No n/v pain improved leukocytosis. abd soft, tenderness improved. incisions c/d/i s/p lap appy for acute perforated appendicitis NOT Ready for D/C needs few days of IV abx treat as perforated appendicitis okay for diet ambulate and out of bed am labs Warren Moreira October 04, 2018 16:39
--- NOTE | 2018-10-04 16:41 | NUR ---
NURSE NOTES: Dr BO visited pt and he is aware about HR and other lab results and V/S, No new order. will continue to monitor.
--- NOTE | 2018-10-04 18:00 | NUR ---
P.T NOTE P.T EVALUATION COMPLETED. PATIENT IS BASELINE INDEPENDENT WITH ADL/FUNCTIONAL MOBILITIES AND GAIT/LOCOMOTION. INSTRUCTION PROVIDED TO PATIENT RE: DEEP BREATHING EXERCISES WELL ENCOURAGED PATIENT OOB ACTIVITIES I.E AMBULATE JULIO.POST OP. PATIENT VERBALIZED UNDERSTANDING.NO FURTHER P.T FOLLOW UP NEEDED. D/C P.T SERVICES. Addendum: 10/04/18 at 1801 by MARJAN FOSTER PT Amended: Links added.
--- NOTE | 2018-10-04 19:30 | NUR ---
HAND-OFF: Report given to KISHORE LAUREANO.
--- NOTE | 2018-10-04 19:30 | NUR ---
Report received from KISHORE Alfaro. Patient ambulating in room, visitor at bedside. No c/o pain. Bed in low position, locked, side rails up x2, call light within reach. Patient alert/oriented x4. Will continue to monitor.
[2018-10-04 20:30] VITALS: BP 133/96
[2018-10-04] MEDS ORDERED: Tubing IV Secondary IV ONE (20:44)
[2018-10-05] VITALS: BP 141/81
[2018-10-05] MEDS: HYDROcodone/Acetamin 5/325 tab ORAL PRN ×4 (00:22→14:24)
[2018-10-05] MEDS: LORazepam 1mg tab ORAL PRN ×2 (02:26→18:31)
[2018-10-05 04:00] VITALS: BP 128/93
[2018-10-05] MEDS: Piperacillin/Tazobactam 3.375 GM in NS 110 ML IVPB SCH ×3 (05:37→21:51)
[2018-10-05] MEDS: NovoLOG Insulin Flexpen SUBQ SCH ×4 (06:18→21:00)
[2018-10-05 06:35] LABS: HEMATOCRIT 41.4 % (42.0-52.0); HEMOGLOBIN 14.3 G/DL (14.2-18.0); MEAN CORPUSCULAR VOLUME 88 FL (80-99); PLATELET COUNT 237 K/UL (150-450); RED BLOOD COUNT 4.69 M/UL (4.70-6.10); RED CELL DISTRIBUTION WIDTH 11.6 % (11.6-14.8); WHITE BLOOD COUNT 21.2 K/UL (4.8-10.8)
--- NOTE | 2018-10-05 07:30 | Nephrology Progress Note ---
Assessment/Plan Assessment/Plan: A/P 1) Appendicitis- s/p appy - Zosyn, HD stable , tachycardic - DC once cleared by surgery 2) DVT prophylaxsis with ambulation and SCDs Subjective Date patient seen: October 05, 2018 Time patient seen: 07:27 ROS Limited/Unobtainable: No Allergies: Coded Allergies: No Known Allergies (Unverified , 10/02/18) Subjective Patient ambulating in no acute distress Objective Last 24 Hour Vital Signs Date Time Temp Pulse Resp B/P (MAP) Pulse Ox O2 Delivery O2 Flow Rate FiO2 10/05/18 04:00 99.2 99 17 128/93 (105) 95 10/05/18 00:00 98.2 94 19 141/81 (101) 95 10/04/18 22:00 99.0 10/04/18 21:27 99.0 10/04/18 21:00 99.5 74 17 10/04/18 21:00 Room Air 10/04/18 20:30 101.3 75 16 133/96 (108) 95 10/04/18 16:00 98.7 109 22 144/97 (113) 97 10/04/18 14:13 98.1 10/04/18 12:00 98.1 109 20 141/97 (112) 96 10/04/18 09:00 Room Air 10/04/18 08:00 98.0 76 19 127/87 (100) 99 Intake and Output 10/04/18 10/05/18 18:59 06:59 Intake Total 590.0 ml 1130 ml Balance 590.0 ml 1130 ml Intake Oral 480 ml 1130 ml IV Total 110.0 ml # Voids 7 # Bowel Movements 2 Laboratory Tests 10/05/18 05:50: White Blood Count 21.2H, Red Blood Count 4.69L, Hemoglobin 14.3, Hematocrit 41.4L, Mean Corpuscular Volume 88, Mean Corpuscular Hemoglobin 30.4, Mean Corpuscular Hemoglobin Concent 34.5, Red Cell Distribution Width 11.6, Platelet Count 237, Mean Platelet Volume 8.5, Neutrophils (%) (Auto) , Lymphocytes (%) ( Auto) , Monocytes (%) (Auto) , Eosinophils (%) (Auto) , Basophils (%) (Auto) , Neutrophils % (Manual) [Pending], Lymphocytes % (Manual) [Pending], Platelet Estimate [Pending], Platelet Morphology [Pending] Height (Feet): 5 Height (Inches): 8.00 Weight (Pounds): 256 General Appearance: no apparent distress, alert EENT: normal ENT inspection Neck: normal alignment, supple Cardiovascular: tachycardia Respiratory/Chest: lungs clear, normal breath sounds Abdomen: non tender, soft Edema: no edema noted Arm (L), no edema noted Arm (R), no edema noted Leg (L), no edema noted Leg (R), no edema noted Pedal (L), no edema noted Pedal (R), no edema noted Generalized Lenin Meza MD October 05, 2018 07:30
--- NOTE | 2018-10-05 07:30 | NUR ---
HAND-OFF: Report given to Patricio Nicole RN. Patient in stable condition.
--- NOTE | 2018-10-05 07:35 | NUR ---
NURSE NOTES: Patient lying in bed awake. Complain of pain 4/10 on surgical site and will continue to monitor. Skin intact and dry. Surgical dressing intact and dry. IV dressing intact and dry. Bed lowest position. Call light within reach. Will continue to monitor.
[2018-10-05 08:00] VITALS: BP 129/89
[2018-10-05 12:00] VITALS: BP 131/89
--- NOTE | 2018-10-05 12:00 | NUR ---
*-* INSURANCE *-* ALL CLINICALS AND REVIEWS HAVE BEEN FAXED TO: NOHEMI WILSON: MARY P- [phone] 1924 F- [phone]........... REVIEW/CLINICAL
[2018-10-05] MEDS: metFORMIN 500mg tab ORAL SCH ×2 (12:33→17:10)
--- NOTE | 2018-10-05 14:41 | General Progress Note ---
Progress Note Progress Note Surgery febrile, leukocytosis pain improved wounds c/d/i exam benign cont iv abx not ready for dc am labs Warren Moreira October 05, 2018 14:41
--- NOTE | 2018-10-05 15:56 | NUR ---
QUARTER TRIMMERAIR SURVEILLANCE OPERATOR SI:APPENDICITIS S/P LAPAROSCOPIC APPENDECTOMY VS: BP 141/81, P 108, T 98.2, RR 19, SpO2 94 WBC 21.2, RBC 4.69, HCT 41.4, BUN 6 IS: NORCO 5/325 1tab ZOSYN 110ml IVPB METFORMIN 500mg NS x1L IV 3E MED/SURG STATUS
[2018-10-05 16:00] VITALS: BP 136/87
--- NOTE | 2018-10-05 19:30 | NUR ---
HAND-OFF: Report given to Therese NOVAK. Patient in stable condition.
[2018-10-05 20:00] VITALS: BP 149/91
[2018-10-05] MEDS: HYDROcodone/Acetamin 10/325 tab ORAL PRN (21:21)
[2018-10-06] VITALS: BP 135/91
[2018-10-06] MEDS: HYDROcodone/Acetamin 10/325 tab ORAL PRN (03:42)
[2018-10-06 04:00] VITALS: BP 142/96
[2018-10-06] MEDS: Piperacillin/Tazobactam 3.375 GM in NS 110 ML IVPB SCH ×2 (06:03→13:04)
[2018-10-06] MEDS: NovoLOG Insulin Flexpen SUBQ SCH ×4 (06:30→21:00)
[2018-10-06 06:53] LABS: HEMATOCRIT 40.8 % (42.0-52.0); MEAN CORPUSCULAR VOLUME 89 FL (80-99); PLATELET COUNT 277 K/UL (150-450)
[2018-10-06] MEDS: metFORMIN 500mg tab ORAL SCH ×3 (06:58→16:30)
[2018-10-06] MEDS: LORazepam 1mg tab ORAL PRN ×3 (06:58→18:50)
[2018-10-06 07:11] LABS: ANION GAP 11 mmol/L (5-15); BLOOD UREA NITROGEN 9 mg/dL (7-18); CALCIUM 9.5 MG/DL (8.5-10.1); CARBON DIOXIDE 28 MMOL/L (21-32); CHLORIDE 99 MMOL/L (98-107); CREATININE 0.8 MG/DL (0.55-1.30); POTASSIUM 2.9 MMOL/L (3.5-5.1); SODIUM 138 MMOL/L (136-145)
--- NOTE | 2018-10-06 07:35 | NUR ---
NURSE NOTES: Received report from KISHORE Saleh. Rounding done with outgoing nurse. Patient a/o x4 lying on the bed. Patient stat pain level is 2/10. Girlfriend is at bedside. Abdominal surgical site is dry and intact. Zosyn is running at this time. Bed in lowest position, call light within reach. Will continue to monitor.
[2018-10-06 08:00] VITALS: BP 154/74
--- NOTE | 2018-10-06 08:31 | Nephrology Progress Note ---
Assessment/Plan Assessment/Plan: A/P 1) Appendicitis- s/p appy - Zosyn, HD stable , patient has defervesced - DC once cleared by surgery and WBC trending down 2) DVT prophylaxsis with ambulation and SCDs 3) Hypokalemia- being replaced Subjective Date patient seen: October 06, 2018 Time patient seen: 08:28 ROS Limited/Unobtainable: Yes Allergies: Coded Allergies: No Known Allergies (Unverified , 10/02/18) All Systems: reviewed and negative except above Subjective Patient FEELING LITTLE BETTER, HAS DEFERVESCED Objective Last 24 Hour Vital Signs Date Time Temp Pulse Resp B/P (MAP) Pulse Ox O2 Delivery O2 Flow Rate FiO2 10/06/18 04:00 99.0 100 20 142/96 (111) 94 10/06/18 00:00 99.4 98 21 135/91 (106) 95 107 10/05/18 21:00 Room Air 10/05/18 20:00 99.2 98 18 149/91 (110) 96 10/05/18 16:00 100.1 92 17 136/87 (103) 96 10/05/18 12:00 98.8 103 17 131/89 (103) 96 10/05/18 09:00 Room Air Intake and Output 10/05/18 10/06/18 18:59 06:59 Intake Total 2500 ml 600 ml Output Total 200 ml Balance 2500 ml 400 ml Intake Oral 2500 ml IV Total 600 ml Output Emesis 200 ml # Voids 4 # Bowel Movements 1 Laboratory Tests 10/06/18 06:16: White Blood Count 23.0*H, Red Blood Count 4.60L, Hemoglobin 14.0L, Hematocrit 40.8L, Mean Corpuscular Volume 89, Mean Corpuscular Hemoglobin 30.5, Mean Corpuscular Hemoglobin Concent 34.3, Red Cell Distribution Width 12.0, Platelet Count 277, Mean Platelet Volume 7.7, Neutrophils (%) (Auto) , Lymphocytes (%) ( Auto) , Monocytes (%) (Auto) , Eosinophils (%) (Auto) , Basophils (%) (Auto) , Neutrophils % (Manual) [Pending], Lymphocytes % (Manual) [Pending], Platelet Estimate [Pending], Platelet Morphology [Pending], Erythrocyte Sedimentation Rate [Pending], Sodium Level 138, Potassium Level 2.9L, Chloride Level 99, Carbon Dioxide Level 28, Anion Gap 11, Blood Urea Nitrogen 9, Creatinine 0.8, Estimat Glomerular Filtration Rate > 60, Glucose Level 110H, Calcium Level 9.5, C-Reactive Protein, Quantitative 52.1H Height (Feet): 5 Height (Inches): 8.00 Weight (Pounds): 256 General Appearance: no apparent distress, alert EENT: normal ENT inspection Neck: normal alignment, supple Cardiovascular: normal rate, regular rhythm Respiratory/Chest: lungs clear, normal breath sounds Abdomen: non tender, soft Edema: no edema noted Arm (L), no edema noted Arm (R), no edema noted Leg (L), no edema noted Leg (R), no edema noted Pedal (L), no edema noted Pedal (R), no edema noted Generalized Lenin Meza MD October 06, 2018 08:31
[2018-10-06] MEDS ORDERED: Sodium Chloride for KCL Premix X 3hrs IV SCH (09:00)
[2018-10-06] MEDS ORDERED: Isovue-300 100ml vial INJ PRN (10:00)
[2018-10-06] MEDS ORDERED: Gastrograffin 30ml ORAL PRN (10:00)
--- NOTE | 2018-10-06 11:04 | NUR ---
NURSE NOTES: Pt c/o burning sensation on IV site while KCl IVPB is running. Dr. Meza was notified and ordered Kcl 40 meq po bid x 3 doses. Noted and carried out.
--- NOTE | 2018-10-06 11:19 | General Progress Note ---
Progress Note Progress Note Surgery: fevers resolved. tachy at times. still with leukocytosis 23k despite being on abx passing flatus tolerated diet but did have emesis x1 last night after drinking juice drink his mother made him abd soft, non distended, tenderness improved. wounds c/d/i -ID eval -CT ordered AM labs not ready for dc Warren Moreira October 06, 2018 11:19
--- NOTE | 2018-10-06 11:35 | NUR ---
NURSE NOTES: Patient off the unit for CT of abd/pelvis.
[2018-10-06 12:00] VITALS: BP 144/83
--- NOTE | 2018-10-06 12:00 | NUR ---
NURSE NOTES: Patient came back in stable condition.
--- NOTE | 2018-10-06 12:13 | NUR ---
*-* INSURANCE *-* ALL CLINICALS AND REVIEWS HAVE BEEN FAXED TO: NOHEMI WILSON: MARY P- [phone] 1924 F- [phone]........... REVIEW/CLINICAL
--- NOTE | 2018-10-06 14:00 | Diagnostic Imaging Report ---
Indication: Recent abdominal surgery for acute appendicitis Technique: Continuous helical transaxial imaging of the abdomen and pelvis was obtained from the lung bases to the pubic symphysis during intravenous contrast administration. Coronal 2-D reformats were also obtained. Study obtained in a Siemens sensation [address] Automatic Exposure Control was utilized. Total Dose length Product (DLP): 928.[address] Dose Index Volume (CTDIvol): 14.46 mGy Comparison: pre-operative CT 10/02/2018 Findings: Patient is status post the interval abdominal surgery which appears to have been a laparoscopic surgery. Surgical clips are seen in the expected location of the appendix which has been resected. Postoperative changes with mesenteric and retroperitoneal soft tissue stranding are noted on the right side. There are small pockets of fluid demonstrated in the right lower quadrant, lower mid abdomen and cul-de-sac in keeping with recent surgery. The postoperative fluid collections may be postoperative seromas or lymphoceles. Infection of this fluid is not excluded. Bowel gas pattern is nonobstructive. Trace free air noted in the area of the liver. Solid organs including the liver and spleen, kidneys and pancreas appear unremarkable. The bladder is unremarkable. IMPRESSION: Postoperative changes from recent appendectomy. Pockets of the peritoneal fluid within the surgical bed and pelvis may be postoperative seromas or lymphoceles or developing infection/abscess. Correlate clinically and suggest follow-up as warranted. The CT scanner at [facility] is accredited by the [employer] and the scans are performed using dose optimization techniques as appropriate to a performed exam including Automatic Exposure control.
--- NOTE | 2018-10-06 15:55 | Consultation ---
History of Present Illness General Date patient seen: October 06, 2018 Chief Complaint: Abdominal Pain Present Illness HPI 22 y/o M with hx of Dm. HTN presents to ED on 10/02 with 1 week of worsening abd pain; pain described as cramping, 9/10 intensity, lower abdomen on suprapubic and RLQ area. Associated symptoms subjective fevers Denied n/v/d, CP, SOB upon admission. Allergies: Coded Allergies: No Known Allergies (Unverified , 10/02/18) Medication History Scheduled Atorvastatin Calcium* (Atorvastatin Calcium*), 10 MG ORAL DAILY, (Reported) Metformin Hcl* (Metformin Hcl*), 500 MG ORAL TWICE A DAY, (Reported) Patient History Healthcare decision maker Resuscitation status Full Code Advanced Directive on File Patient History Narrative Pmhx: as above Shx: Denies: smoking, alcohol use, drug use Fhx: non contributory Physical Exam Physical Exam Narrative GENERAL: The patient awake, alert, not otherwise in distress. HEENT: Extraocular muscles intact. No lymphadenopathy noted. CARDIOVASCULAR: S1 and S2. No rubs or gallops. PULMONARY: Clear to auscultation bilaterally. No rales, rhonchi, or wheezes. ABDOMEN: Mild tenderness, right lower quadrant. EXTREMITIES: No edema. Last 24 Hour Vital Signs Date Time Temp Pulse Resp B/P (MAP) Pulse Ox O2 Delivery O2 Flow Rate FiO2 10/06/18 12:00 97.7 91 22 144/83 (103) 95 10/06/18 08:00 97.7 103 22 154/74 (100) 96 10/06/18 04:00 99.0 100 20 142/96 (111) 94 10/06/18 00:00 99.4 98 21 135/91 (106) 95 107 10/05/18 21:00 Room Air 10/05/18 20:00 99.2 98 18 149/91 (110) 96 10/05/18 16:00 100.1 92 17 136/87 (103) 96 Intake and Output 10/05/18 10/06/18 19:00 07:00 Intake Total 2500 ml 600 ml Output Total 200 ml Balance 2500 ml 400 ml Intake Oral 2500 ml IV Total 600 ml Output Emesis 200 ml # Voids 4 # Bowel Movements 1 Laboratory Tests Test 10/06/18 06:16 White Blood Count 23.0 K/UL (4.8-10.8) *H Red Blood Count 4.60 M/UL (4.70-6.10) L Hemoglobin 14.0 G/DL (14.2-18.0) L Hematocrit 40.8 % (42.0-52.0) L Mean Corpuscular Volume 89 FL (80-99) Mean Corpuscular Hemoglobin 30.5 PG (27.0-31.0) Mean Corpuscular Hemoglobin Concent 34.3 G/DL (32.0-36.0) Red Cell Distribution Width 12.0 % (11.6-14.8) Platelet Count 277 K/UL (150-450) Mean Platelet Volume 7.7 FL (6.5-10.1) Neutrophils (%) (Auto) % (45.0-75.0) Lymphocytes (%) (Auto) % (20.0-45.0) Monocytes (%) (Auto) % (1.0-10.0) Eosinophils (%) (Auto) % (0.0-3.0) Basophils (%) (Auto) % (0.0-2.0) Differential Total Cells Counted 100 Neutrophils % (Manual) 87 % (45-75) H Lymphocytes % (Manual) 8 % (20-45) L Monocytes % (Manual) 5 % (1-10) Eosinophils % (Manual) 0 % (0-3) Basophils % (Manual) 0 % (0-2) Band Neutrophils 0 % (0-8) Platelet Estimate Adequate Platelet Morphology Normal Red Blood Cell Morphology Normal Erythrocyte Sedimentation Rate 60 MM/HR (0-15) H Sodium Level 138 MMOL/L (136-145) Potassium Level 2.9 MMOL/L (3.5-5.1) L Chloride Level 99 MMOL/L (98-107) Carbon Dioxide Level 28 MMOL/L (21-32) Anion Gap 11 mmol/L (5-15) Blood Urea Nitrogen 9 mg/dL (7-18) Creatinine 0.8 MG/DL (0.55-1.30) Estimat Glomerular Filtration Rate > 60 mL/min (>60) Glucose Level 110 MG/DL (74-106) H Calcium Level 9.5 MG/DL (8.5-10.1) C-Reactive Protein, Quantitative 52.1 mg/dL (0.00-0.90) H Height (Feet): 5 Height (Inches): 8.00 Weight (Pounds): 256 Medications Current Medications Medications (Trade) Dose Ordered Sig/Carissa Route PRN Reason Start Time Stop Time Status Last Admin Dose Admin Acetaminophen (Tylenol) 650 mg Q4H PRN ORAL fever 10/02/18 21:45 11/01/18 21:44 10/04/18 20:57 Acetaminophen (Tylenol) 650 mg Q4H PRN ORAL Mild Pain (Pain Scale 1-3) 10/02/18 22:15 11/01/18 22:14 Acetaminophen/ Hydrocodone Bitart ([place] 10/325) 1 tab Q4H PRN ORAL Severe Pain (Pain Scale 7-10) 10/03/18 13:00 10/10/18 12:59 10/06/18 03:42 Acetaminophen/ Hydrocodone Bitart ([place] 5/325) 1 tab Q4H PRN ORAL Moderate Pain (Pain Scale 4-6) 10/03/18 13:00 10/10/18 12:59 10/05/18 14:24 Al Hydroxide/Mg Hydroxide (Mylanta II) 30 ml Q6H PRN ORAL dyspepsia 10/02/18 21:45 11/01/18 21:44 Dextrose (Dextrose 50%) 25 ml Q30M PRN IV Hypoglycemia 10/03/18 09:45 11/02/18 09:44 Dextrose (Dextrose 50%) 50 ml Q30M PRN IV Hypoglycemia 10/03/18 09:45 11/02/18 09:44 Diphenhydramine HCl (Benadryl) 25 mg Q6H PRN ORAL Itching/Pruritis 10/02/18 21:45 11/01/18 21:44 Insulin Aspart (NovoLOG) BEFORE MEALS AND HS SUBQ 10/03/18 11:30 11/02/18 11:29 Lorazepam (Ativan) 1 mg Q4H PRN ORAL For Anxiety 10/02/18 21:45 10/09/18 21:44 10/06/18 13:27 Magnesium Hydroxide (Mom) 30 ml HSPRN PRN ORAL Constipation 10/02/18 21:45 11/01/18 21:44 Metformin HCl (Glucophage) 500 mg TIAC ORAL 10/05/18 11:30 11/04/18 11:29 10/06/18 06:58 Morphine Sulfate (Morphine Sulfate) 1 mg Q3H PRN IVP pain 1-3 10/02/18 21:45 10/09/18 21:44 Morphine Sulfate (Morphine Sulfate) 2 mg Q3H PRN IVP Moderate Pain (Pain Scale 4-6) 10/02/18 21:45 10/09/18 21:44 Morphine Sulfate (Morphine Sulfate) 4 mg Q3H PRN IVP Severe Pain (Pain Scale 7-10) 10/02/18 21:45 10/09/18 21:44 Ondansetron HCl (Zofran) 4 mg Q6H PRN IVP Nausea & Vomiting 10/02/18 22:15 11/01/18 22:14 10/06/18 10:49 Piperacillin Sod/ Tazobactam Sod 3.375 gm/Sodium Chloride 110 ml @ 27.5 mls/hr EVERY 8 HOURS IVPB 10/04/18 14:00 10/10/18 05:59 10/06/18 13:04 Potassium Chloride (K-Dur) 40 meq TWICE A DAY ORAL 10/06/18 11:30 10/07/18 09:01 10/06/18 13:03 Temazepam (Restoril) 15 mg HSPRN PRN ORAL Insomnia 10/02/18 21:45 10/09/18 21:44 10/06/18 00:29 Assessment/Plan Assessment/Plan: Abx: Zosyn 10/02- Assessment: Acute perforated appendicitis- watch for early abscess given ongoing fevers and increasing leukocytosis -10/03 SP Laparoscopic appendectomy. -OR findings: In the right lower quadrant, there was a thickened inflammatory omentum draped over the right lower quadrant.appendix with mid- appendiceal perforation and some purulent succus identified. -10/02 CT abd/p: Acute appendicitis with moderate inflammation. The appendix may be ruptured. Fever- r/o bacteremia Leukocytosis, increased -10/06 CT abd/p: Postoperative changes from recent appendectomy. Pockets of the peritoneal fluid within the surgical bed and pelvis may be postoperative seromas or lymphoceles or developing infection/abscess. Correlate clinically and suggest follow-up as warranted. -10/02 u/a neg Dm HTN Plan: -Switch Zosyn #5 to Ertapenem and add Micafungin for fungal coverage -f/u cx -Monitor CBC/CMP, temperatures -Bcx x2 -CBC, CMP am -wound care per surgical team -CXR Thank you for this consultation. Will continue to follow along with you. Discussed with KISHORE. Stacia Kline M.D. October 06, 2018 15:55
--- NOTE | 2018-10-06 15:57 | NUR ---
FEDERAL APPELLATE CLERKESTIMATOR AND DRAFTER SUPERVISOR SI:APPENDICITIS S/P LAPAROSCOPIC APPENDECTOMY VS: BP 154/74, P 107, T 99.4, RR 22, SpO2 94 WBC 23, RBC 4.60, H&H 14.0/40.8, K 2.9 IS: NORCO 5/325 1tab ZOSYN 110ml IVPB POTASSIUM CHLORIDE 100ml IVPB K-DUR 40meq NS x1L IV LORAZEPAM 1mg 3E MED/SURG STATUS
[2018-10-06 16:00] VITALS: BP 154/89
[2018-10-06] MEDS: Ertapenem 1 GM in NS 55 ML IVPB SCH (18:40)
[2018-10-06] MEDS: Micafungin 100 MG in NS 110 ML IVPB SCH (19:50)
--- NOTE | 2018-10-06 19:58 | NUR ---
HAND-OFF: Report given to KISHORE Martino.
[2018-10-06 20:00] VITALS: BP 149/95
--- NOTE | 2018-10-06 20:00 | NUR ---
NURSE NOTES: PATIENT IN BED. ON RA, NO SOB, NO ACUTE DISTRESS, DENIES PAIN. RAC IV INTACT, PATENT RUNNING TKO. BED IN LOWEST POSITION, LOCKED, ALARMS ON. CALL LIGHT IN REACH. FAMILY MEMBER AND GIRLFRIEND BY BEDSIDE.
[2018-10-07] VITALS: BP 127/81
[2018-10-07] MEDS: LORazepam 1mg tab ORAL PRN ×2 (01:56→16:52)
[2018-10-07 04:00] VITALS: BP 143/87
[2018-10-07] MEDS: metFORMIN 500mg tab ORAL SCH ×3 (06:17→16:53)
[2018-10-07] MEDS: NovoLOG Insulin Flexpen SUBQ SCH ×4 (06:17→20:55)
[2018-10-07 07:21] LABS: HEMATOCRIT 35.9 % (42.0-52.0); HEMOGLOBIN 12.8 G/DL (14.2-18.0); MEAN CORPUSCULAR VOLUME 87 FL (80-99); PLATELET COUNT 290 K/UL (150-450); RED BLOOD COUNT 4.15 M/UL (4.70-6.10); RED CELL DISTRIBUTION WIDTH 11.8 % (11.6-14.8); WHITE BLOOD COUNT 18.4 K/UL (4.8-10.8)
--- NOTE | 2018-10-07 07:22 | NUR ---
HAND-OFF: Report given to HARPAL NOVAK.
[2018-10-07 07:26] LABS: ANION GAP 10 mmol/L (5-15); BLOOD UREA NITROGEN 11 mg/dL (7-18); CALCIUM 9.5 MG/DL (8.5-10.1); CARBON DIOXIDE 28 MMOL/L (21-32); CHLORIDE 104 MMOL/L (98-107); CREATININE 0.7 MG/DL (0.55-1.30); SODIUM 142 MMOL/L (136-145)
--- NOTE | 2018-10-07 07:28 | NUR ---
NURSE NOTES: AWAKE/ALERT. NO C/O PAIN. ABDOMINAL SCOPE SITES X3 INTACT WITH STERISTRIPS. DRY AND INTACT. IN NO DISTRESS.
[2018-10-07 07:32] LABS: ALANINE AMINOTRANSFERASE 36 U/L (12-78); ALBUMIN 2.5 G/DL (3.4-5.0); ALKALINE PHOSPHATASE 78 U/L (46-116); ASPARTATE AMINO TRANSFERASE 25 U/L (15-37); BILIRUBIN,DIRECT 0.8 MG/DL (0.0-0.3); BILIRUBIN,TOTAL 1.7 MG/DL (0.2-1.0)
[2018-10-07 08:00] VITALS: BP 121/78
[2018-10-07] MEDS ORDERED: Tubing IV Secondary IV ONE (10:10)
--- NOTE | 2018-10-07 11:12 | Diagnostic Imaging Report ---
Indication: Dyspnea Comparison: None A single view chest radiograph was obtained. Findings: Cardiomediastinal appearance is within normal limits for age. The lungs are clear. Pulmonary vascularity is appropriate. The diaphragmatic contour is smooth and costophrenic angles are sharp. No pleural effusions are identified. The bones are unremarkable. Impression: No acute findings. Limited evaluation due to expiratory lung volumes.
--- NOTE | 2018-10-07 11:20 | General Progress Note ---
Progress Note Progress Note wbc trending down exam benign doing well appreciate ID input for abx change AM labs possible d/c tomorrow Warren Moreira October 07, 2018 11:20
--- NOTE | 2018-10-07 11:43 | Infectious Diseases Prog Note ---
Assessment/Plan Assessment/Plan Assessment: Acute perforated appendicitis- watch for early abscess given ongoing fevers and increasing leukocytosis -10/03 SP Laparoscopic appendectomy. -OR findings: In the right lower quadrant, there was a thickened inflammatory omentum draped over the right lower quadrant.appendix with mid- appendiceal perforation and some purulent succus identified. -10/02 CT abd/p: Acute appendicitis with moderate inflammation. The appendix may be ruptured. Fever- r/o bacteremia -10/06 BCx p -CXR: No acute findings. Limited evaluation due to expiratory lung volumes. Leukocytosis, increased, now improving -10/06 CT abd/p: Postoperative changes from recent appendectomy. Pockets of the peritoneal fluid within the surgical bed and pelvis may be postoperative seromas or lymphoceles or developing infection/abscess. Correlate clinically and suggest follow-up as warranted. -10/02 u/a neg Dm HTN Plan: -Cont Ertapenem #2 (abx d #6) and add Micafungin #2 for fungal coverage -10/06 Sp Zosyn #5 -f/u cx -Monitor CBC/CMP, temperatures -f/u Bcx x2 -wound care per surgical team Thank you for this consultation. Will continue to follow along with you. Discussed with RN. Subjective Allergies: Coded Allergies: No Known Allergies (Unverified , 10/02/18) Objective Vital Signs Last 24 Hour Vital Signs Date Time Temp Pulse Resp B/P (MAP) Pulse Ox O2 Delivery O2 Flow Rate FiO2 10/07/18 09:00 Room Air 10/07/18 08:00 98.5 79 19 121/78 (92) 95 10/07/18 04:00 97.7 77 20 143/87 (105) 98 10/07/18 00:00 98.1 95 20 127/81 (96) 95 10/06/18 22:00 99.8 10/06/18 21:58 99.8 10/06/18 21:00 Room Air 10/06/18 20:00 100.7 95 20 149/95 (113) 97 10/06/18 16:00 98.2 81 20 154/89 (110) 94 10/06/18 12:00 97.7 91 22 144/83 (103) 95 Height (Feet): 5 Height (Inches): 8.00 Weight (Pounds): 256 Objective GENERAL: The patient awake, alert, not otherwise in distress. HEENT: Extraocular muscles intact. No lymphadenopathy noted. CARDIOVASCULAR: S1 and S2. No rubs or gallops. PULMONARY: Clear to auscultation bilaterally. No rales, rhonchi, or wheezes. ABDOMEN: Mild tenderness, right lower quadrant. EXTREMITIES: No edema. Laboratory Tests Test 10/07/18 07:05 White Blood Count 18.4 K/UL (4.8-10.8) H Red Blood Count 4.15 M/UL (4.70-6.10) L Hemoglobin 12.8 G/DL (14.2-18.0) L Hematocrit 35.9 % (42.0-52.0) L Mean Corpuscular Volume 87 FL (80-99) Mean Corpuscular Hemoglobin 30.9 PG (27.0-31.0) Mean Corpuscular Hemoglobin Concent 35.7 G/DL (32.0-36.0) Red Cell Distribution Width 11.8 % (11.6-14.8) Platelet Count 290 K/UL (150-450) Mean Platelet Volume 6.9 FL (6.5-10.1) Neutrophils (%) (Auto) % (45.0-75.0) Lymphocytes (%) (Auto) % (20.0-45.0) Monocytes (%) (Auto) % (1.0-10.0) Eosinophils (%) (Auto) % (0.0-3.0) Basophils (%) (Auto) % (0.0-2.0) Differential Total Cells Counted 100 Neutrophils % (Manual) 70 % (45-75) Lymphocytes % (Manual) 17 % (20-45) L Monocytes % (Manual) 11 % (1-10) H Eosinophils % (Manual) 2 % (0-3) Basophils % (Manual) 0 % (0-2) Band Neutrophils 0 % (0-8) Platelet Estimate Adequate Platelet Morphology Normal Red Blood Cell Morphology Normal Erythrocyte Sedimentation Rate 92 MM/HR (0-15) H Sodium Level 142 MMOL/L (136-145) Potassium Level 3.0 MMOL/L (3.5-5.1) L Chloride Level 104 MMOL/L (98-107) Carbon Dioxide Level 28 MMOL/L (21-32) Anion Gap 10 mmol/L (5-15) Blood Urea Nitrogen 11 mg/dL (7-18) Creatinine 0.7 MG/DL (0.55-1.30) Estimat Glomerular Filtration Rate > 60 mL/min (>60) Glucose Level 101 MG/DL (74-106) Calcium Level 9.5 MG/DL (8.5-10.1) Total Bilirubin 1.7 MG/DL (0.2-1.0) H Direct Bilirubin 0.8 MG/DL (0.0-0.3) H Aspartate Amino Transf (AST/SGOT) 25 U/L (15-37) Alanine Aminotransferase (ALT/SGPT) 36 U/L (12-78) Alkaline Phosphatase 78 U/L (46-116) C-Reactive Protein, Quantitative 37.7 mg/dL (0.00-0.90) H Total Protein 6.5 G/DL (6.4-8.2) Albumin 2.5 G/DL (3.4-5.0) L Current Medications Medications (Trade) Dose Ordered Sig/Carissa Route PRN Reason Start Time Stop Time Status Last Admin Dose Admin Acetaminophen (Tylenol) 650 mg Q4H PRN ORAL fever 10/02/18 21:45 11/01/18 21:44 10/06/18 21:28 Acetaminophen (Tylenol) 650 mg Q4H PRN ORAL Mild Pain (Pain Scale 1-3) 10/02/18 22:15 11/01/18 22:14 Acetaminophen/ Hydrocodone Bitart ([place] 10/325) 1 tab Q4H PRN ORAL Severe Pain (Pain Scale 7-10) 10/03/18 13:00 10/10/18 12:59 10/06/18 03:42 Acetaminophen/ Hydrocodone Bitart ([place] 5/325) 1 tab Q4H PRN ORAL Moderate Pain (Pain Scale 4-6) 10/03/18 13:00 10/10/18 12:59 10/05/18 14:24 Al Hydroxide/Mg Hydroxide (Mylanta II) 30 ml Q6H PRN ORAL dyspepsia 10/02/18 21:45 11/01/18 21:44 Dextrose (Dextrose 50%) 25 ml Q30M PRN IV Hypoglycemia 10/03/18 09:45 11/02/18 09:44 Dextrose (Dextrose 50%) 50 ml Q30M PRN IV Hypoglycemia 10/03/18 09:45 11/02/18 09:44 Diphenhydramine HCl (Benadryl) 25 mg Q6H PRN ORAL Itching/Pruritis 10/02/18 21:45 11/01/18 21:44 Ertapenem 1 gm/ Sodium Chloride 55 ml @ 110 mls/hr Q24H IVPB 10/06/18 17:00 10/11/18 16:59 10/06/18 18:40 Insulin Aspart (NovoLOG) BEFORE MEALS AND HS SUBQ 10/03/18 11:30 11/02/18 11:29 Lorazepam (Ativan) 1 mg Q4H PRN ORAL For Anxiety 10/02/18 21:45 10/09/18 21:44 10/07/18 01:56 Magnesium Hydroxide (Mom) 30 ml HSPRN PRN ORAL Constipation 10/02/18 21:45 11/01/18 21:44 Metformin HCl (Glucophage) 500 mg TIAC ORAL 10/05/18 11:30 11/04/18 11:29 10/06/18 06:58 Micafungin Sodium 100 mg/Sodium Chloride 110 ml @ 110 mls/hr Q24H IVPB 10/06/18 18:00 10/13/18 17:59 10/06/18 19:50 Morphine Sulfate (Morphine Sulfate) 1 mg Q3H PRN IVP pain 1-3 10/02/18 21:45 10/09/18 21:44 Morphine Sulfate (Morphine Sulfate) 2 mg Q3H PRN IVP Moderate Pain (Pain Scale 4-6) 10/02/18 21:45 10/09/18 21:44 Morphine Sulfate (Morphine Sulfate) 4 mg Q3H PRN IVP Severe Pain (Pain Scale 7-10) 10/02/18 21:45 10/09/18 21:44 Ondansetron HCl (Zofran) 4 mg Q6H PRN IVP Nausea & Vomiting 10/02/18 22:15 11/01/18 22:14 10/07/18 09:21 Temazepam (Restoril) 15 mg HSPRN PRN ORAL Insomnia 10/02/18 21:45 10/09/18 21:44 10/06/18 00:29 Stacia Kline M.D. October 07, 2018 11:43
[2018-10-07 12:00] VITALS: BP 132/88
--- NOTE | 2018-10-07 12:00 | NUR ---
CHARGE NURSE NOTE: Pt vomited greenish emesis once. Dr. Meza and notified. Dr.De Raza is on his way to see patient.
--- NOTE | 2018-10-07 12:15 | NUR ---
CHARGE NURSE NOTE: K3.0, WBC 18.4. Dr.De Raza notified.
--- NOTE | 2018-10-07 12:34 | Nephrology Progress Note ---
Assessment/Plan Assessment/Plan: A/P 1) Appendicitis- s/p appy - WBC improved post Abx change to Invanz and Micofungin - he has defervesced 2) DVT prophylaxsis with ambulation and SCDs 3) Hypokalemia- being replaced bid Subjective Date patient seen: October 07, 2018 Time patient seen: 12:30 ROS Limited/Unobtainable: No Allergies: Coded Allergies: No Known Allergies (Unverified , 10/02/18) Subjective Patient decided not to leave AMA. Still little nauseated Objective Last 24 Hour Vital Signs Date Time Temp Pulse Resp B/P (MAP) Pulse Ox O2 Delivery O2 Flow Rate FiO2 10/07/18 09:00 Room Air 10/07/18 08:00 98.5 79 19 121/78 (92) 95 10/07/18 04:00 97.7 77 20 143/87 (105) 98 10/07/18 00:00 98.1 95 20 127/81 (96) 95 10/06/18 22:00 99.8 10/06/18 21:58 99.8 10/06/18 21:00 Room Air 10/06/18 20:00 100.7 95 20 149/95 (113) 97 10/06/18 16:00 98.2 81 20 154/89 (110) 94 Intake and Output 10/06/18 10/07/18 18:59 06:59 Intake Total 500 ml 455 ml Output Total 160 ml Balance 500 ml 295 ml Intake Oral 500 ml 400 ml IV Total 55 ml Output Emesis 160 ml # Voids 3 3 # Bowel Movements 2 Laboratory Tests 10/07/18 07:05: White Blood Count 18.4H, Red Blood Count 4.15L, Hemoglobin 12.8L, Hematocrit 35.9L, Mean Corpuscular Volume 87, Mean Corpuscular Hemoglobin 30.9, Mean Corpuscular Hemoglobin Concent 35.7, Red Cell Distribution Width 11.8, Platelet Count 290, Mean Platelet Volume 6.9, Neutrophils (%) (Auto) , Lymphocytes (%) ( Auto) , Monocytes (%) (Auto) , Eosinophils (%) (Auto) , Basophils (%) (Auto) , Differential Total Cells Counted 100, Neutrophils % (Manual) 70, Lymphocytes % ( Manual) 17L, Monocytes % (Manual) 11H, Eosinophils % (Manual) 2, Basophils % ( Manual) 0, Band Neutrophils 0, Platelet Estimate Adequate, Platelet Morphology Normal, Red Blood Cell Morphology Normal, Erythrocyte Sedimentation Rate 92H, Sodium Level 142, Potassium Level 3.0L, Chloride Level 104, Carbon Dioxide Level 28, Anion Gap 10, Blood Urea Nitrogen 11, Creatinine 0.7, Estimat Glomerular Filtration Rate > 60, Glucose Level 101, Calcium Level 9.5, Total Bilirubin 1.7H, Direct Bilirubin 0.8H, Aspartate Amino Transf (AST/SGOT) 25, Alanine Aminotransferase (ALT/SGPT) 36, Alkaline Phosphatase 78, C-Reactive Protein, Quantitative 37.7H, Total Protein 6.5, Albumin 2.5L Height (Feet): 5 Height (Inches): 8.00 Weight (Pounds): 256 General Appearance: no apparent distress, alert EENT: normal ENT inspection Neck: normal alignment, supple Cardiovascular: normal rate, regular rhythm Respiratory/Chest: lungs clear, normal breath sounds Abdomen: non tender, soft Edema: no edema noted Arm (L), no edema noted Arm (R), no edema noted Leg (L), no edema noted Leg (R), no edema noted Pedal (L), no edema noted Pedal (R), no edema noted Generalized Lenin Meza MD October 07, 2018 12:34
[2018-10-07 16:00] VITALS: BP 127/80
--- NOTE | 2018-10-07 16:38 | NUR ---
CASE MANAGEMENT: REVIEW SI: APPENDICITIS APPENDECTOMY 10/03 T 98.6 HR 77 RR 20 BP 143/87 SAT 98% ROOM AIR WBC 18.4 K 3.0 T BILI 1.7 D BILI 0.8 IS: K-DUR PO BID MICAFUNGIN IV Q24HR ERTAPENEM IV Q24HR NORCO 10/325 PO Q4HR PRN MED/SURG STATUS DCP: PATIENT IS FROM HOME
[2018-10-07] MEDS: Ertapenem 1 GM in NS 55 ML IVPB SCH (17:09)
[2018-10-07] MEDS: Micafungin 100 MG in NS 110 ML IVPB SCH (17:51)
--- NOTE | 2018-10-07 19:00 | NUR ---
NURSE NOTES: RESTING . IN NO APPARENT DISTRESS.
--- NOTE | 2018-10-07 19:17 | NUR ---
HAND-OFF: Report given to Briana BENITEZ RN.
--- NOTE | 2018-10-07 19:20 | NUR ---
NURSE NOTES: Report taken from KISHORE Aleman. patient is awake and in bed, family at bedside. No signs of distress on room air. Has no complaints of pain but does state that he gets nauseas from time to time. IV site c/d/i and patent running antibiotics currently. Skin is intact. Surgical incision sites c/d/i and open to air. Bed in lowest position, call light within reach.
[2018-10-07 20:00] VITALS: BP 134/84
--- NOTE | 2018-10-07 20:37 | NUR ---
NURSE NOTES: Patient did have some emesis, second time today. Green color, no signs of blood or foreign bodies.
[2018-10-07] MEDS: HYDROcodone/Acetamin 5/325 tab ORAL PRN (22:21)
[2018-10-08] VITALS: BP 118/80
[2018-10-08 04:00] VITALS: BP 127/78
[2018-10-08] MEDS: metFORMIN 500mg tab ORAL SCH ×2 (06:14→12:30)
[2018-10-08] MEDS: NovoLOG Insulin Flexpen SUBQ SCH ×2 (06:14→11:30)
--- NOTE | 2018-10-08 07:07 | NUR ---
HAND-OFF: Report given to KISHORE Aleman. Patient is awake in bed, no pain, no emesis, VS stable.
[2018-10-08 07:31] LABS: BASOPHILS % (AUTO) 0.9 % (0.0-2.0); HEMATOCRIT 36.2 % (42.0-52.0); HEMOGLOBIN 12.4 G/DL (14.2-18.0); LYMPHOCYTES % (AUTO) 14.4 % (20.0-45.0); MEAN CORPUSCULAR VOLUME 88 FL (80-99); MONOCYTES % (AUTO) 8.4 % (1.0-10.0); NEUTROPHILS % (AUTO) 75.3 % (45.0-75.0); PLATELET COUNT 290 K/UL (150-450); RED BLOOD COUNT 4.12 M/UL (4.70-6.10); RED CELL DISTRIBUTION WIDTH 12.2 % (11.6-14.8); WHITE BLOOD COUNT 15.6 K/UL (4.8-10.8)
--- NOTE | 2018-10-08 07:31 | NUR ---
NURSE NOTES: AWAKE/ALERT. NO C/O PAIN. IN NO DISTRESS.
[2018-10-08 07:36] LABS: ANION GAP 12 mmol/L (5-15); BLOOD UREA NITROGEN 11 mg/dL (7-18); CALCIUM 9.2 MG/DL (8.5-10.1); CARBON DIOXIDE 24 MMOL/L (21-32); CHLORIDE 104 MMOL/L (98-107); CREATININE 0.7 MG/DL (0.55-1.30); POTASSIUM 3.1 MMOL/L (3.5-5.1); SODIUM 140 MMOL/L (136-145)
[2018-10-08 08:00] VITALS: BP 137/85
[2018-10-08] MEDS: HYDROcodone/Acetamin 5/325 tab ORAL PRN (08:09)
--- NOTE | 2018-10-08 10:21 | NUR ---
NURSE NOTES: OOB, AMBULATED OUT IN THE PULIDO TOLERATED.
[2018-10-08 12:00] VITALS: BP 135/84
--- NOTE | 2018-10-08 12:10 | NUR ---
NURSE NOTES: DR Latonya ROGERS HERE TO SEE PT. AWARE OF LAB RESULTS.
--- NOTE | 2018-10-08 12:10 | Nephrology Progress Note ---
Assessment/Plan Assessment/Plan: A/P 1) Appendicitis- s/p appy - WBC continues to improve now - he has defervesced - DC home today on po Abx per ID and once cleared by Gen Surgery 2) DVT prophylaxsis with ambulation and SCDs 3) Hypokalemia- being replaced bid 4) Dm- continue home metformin Subjective Date patient seen: October 08, 2018 Time patient seen: 12:08 ROS Limited/Unobtainable: No Allergies: Coded Allergies: No Known Allergies (Unverified , 10/02/18) Subjective Patient feeling better. No N/V today Objective Last 24 Hour Vital Signs Date Time Temp Pulse Resp B/P (MAP) Pulse Ox O2 Delivery O2 Flow Rate FiO2 10/08/18 09:02 Room Air 10/08/18 08:39 98.3 10/08/18 08:00 98.3 79 20 137/85 (102) 96 79 10/08/18 04:00 98.3 73 18 127/78 (94) 98 10/08/18 00:00 98.0 63 19 118/80 (93) 96 10/07/18 21:00 Room Air 10/07/18 20:00 98.7 85 19 134/84 (101) 98 10/07/18 16:00 98.5 69 18 127/80 (96) 97 Intake and Output 10/07/18 10/08/18 19:00 07:00 Intake Total 355 ml Output Total 200 ml Balance 155 ml Intake Oral 300 ml IV Total 55 ml Output Emesis 200 ml # Voids 2 3 Laboratory Tests 10/08/18 05:45: White Blood Count 15.6H, Red Blood Count 4.12L, Hemoglobin 12.4L, Hematocrit 36.2L, Mean Corpuscular Volume 88, Mean Corpuscular Hemoglobin 30.2, Mean Corpuscular Hemoglobin Concent 34.3, Red Cell Distribution Width 12.2, Platelet Count 290, Mean Platelet Volume 7.0, Neutrophils (%) (Auto) 75.3H, Lymphocytes ( %) (Auto) 14.4L, Monocytes (%) (Auto) 8.4, Eosinophils (%) (Auto) 1.0, Basophils (%) (Auto) 0.9, Sodium Level 140, Potassium Level 3.1L, Chloride Level 104, Carbon Dioxide Level 24, Anion Gap 12, Blood Urea Nitrogen 11, Creatinine 0.7, Estimat Glomerular Filtration Rate > 60, Glucose Level 88, Calcium Level 9.2 Height (Feet): 5 Height (Inches): 8.00 Weight (Pounds): 256 General Appearance: no apparent distress, alert EENT: normal ENT inspection Neck: normal alignment, supple Cardiovascular: normal rate, regular rhythm Respiratory/Chest: lungs clear, normal breath sounds Abdomen: non tender, soft Edema: no edema noted Arm (L), no edema noted Arm (R), no edema noted Leg (L), no edema noted Leg (R), no edema noted Pedal (L), no edema noted Pedal (R), no edema noted Generalized Lenin Meza MD October 08, 2018 12:10
[2018-10-08] MEDS ORDERED: METRONIDAZOLE500 MG ORAL (12:54)
[2018-10-08] MEDS ORDERED: CEFDINIR300 MG PO (12:55)
--- NOTE | 2018-10-08 13:34 | NUR ---
NURSE NOTES: DISCHARGED HOME ACCPD BY GIRLFRIEND IN STABLE CONDITION. DC INSTRUCTIONS AND RX GIVEN.
--- NOTE | 2018-10-09 12:37 | Discharge Summary ---
Discharge Summary Discharge Summary _ DATE OF ADMISSION: 10/02/2018 DATE OF DISCHARGE: 10/08/2018 DISCHARGED BY: Dr.De Raza REASON FOR ADMISSION: 22 years old male with past medical history of diabetes , presented to ED for evaluation due to abdominal pain for 1 week. Pain localized in the right lower quadrant, sharp, nonradiating 9 out of 10 on a scale 1-10. Patient reported prior fevers. He denied chest pain or shortness of breath . He denied diarrhea . Patient was febrile 101.5 and tachycardic. Pulse oximetry was stable on room air. Laboratory work-up revealed leukocytosis WBC 18.2, stable hemoglobin , hematocrit. Potassium 3.4. Stable renal parameters . Glucose 111 . Lactic acid 0.7 .ALT 101, stable AST and alkaline phosphatase . Urinalysis revealed no evidence of UTI. CT of the abdomen and pelvis revealed acute appendicitis with moderate inflammation, possibly rupture. Surgeon was consulted. Patient started on empiric antibiotic and admitted f orsurgical intervention. CONSULTANTS: ID specialist Dr. Kline surgery Dr. Moreira [facility]RSE: Patient was kept NPO, on IV fluids and broad spectrum antibiotics. Patient subsequently undergone laparoscopic appendectomy. Patient tolerated procedure well. Pathology report revealed acute appendicitis with perforation IV antibiotics provided as per ID specialist recommendation. Blood cultures were negative. Stool for C. difficile was negative. While in the hospital patient was on the IV antibiotics . Patient received Zosyn and then switched to ertapenem and micafungin for n fungal coverage. Patient demonstrated persistent leukocytosis and fever. Repeated CT scan of the abdomen and pelvis revealed postoperative changes from recent appendectomy. Pockets of the peritoneal fluid within the surgical bed and pelvis may be postoperative seroma versus lymphocele versus developing infection or abscess. Fevers resolved. Leukocytosis trending down. Prior to discharge leukocytosis 15.6. Physical exam was benign ID specialist and surgeon cleared patient for discharge on oral antibiotics. Patient was provided with prescription for cefdinir and Flagyl to complete the course. Pain management was addressed. Supportive care provided. DVT prophylaxis with ambulation and SCD provided. Patient slowly started on diet and was advanced as tolerated. Antiemetics were on board as needed. Patient was able to tolerate diet. Small laparoscopic incisions clean and dry. Chest x-ray demonstrated no acute cardiopulmonary pathology. Pulse oximetry was stable on room air. Incentive spirometry was encouraged while in the bed. Renal parameters and electrolytes were closely monitored. Electrolytes corrected as needed , and nephrotoxins were avoided. Blood sugar was managed with metformin and sliding scale of short acting insulin as needed. HgA1c at goal. Patient clinically stabilized and was ready for discharge. Return to ED precautions discussed with patient . FINAL DIAGNOSES Acute appendicitis with perforation Status post laparoscopic appendectomy Persistent leukocytosis Diabetes mellitus Hypokalemia DISCHARGE MEDICATIONS: See Medication Reconciliation list. DISCHARGE INSTRUCTIONS: Patient was discharged home. Follow up with surgeon as outpatient. Return to ED precautions discussed in detail. I have been assigned to dictate discharge summary for this account. I was not involved in the patient's management. Justina Davies NP October 09, 2018 12:37
--- NOTE | 2018-10-10 09:33 | NUR ---
*-* INSURANCE *-* UPDATED CLINICALS THRU D/C HAVE BEEN FAXED TO: [facility]HE[facility] WILSON: MARY P- [phone] F- [phone]........... REVIEW/CLINICAL
== END 2018-10-08 13:37 | disposition home or self-care (01) | DRG 233 ==
LOC: EDBEDREQ 21:42 → EMR 21:48 → 3E 21:58 → EDBEDREQ 22:12
PROC: 0DTJ4ZZ Resection of Appendix, Percutaneous Endoscopic Approach (ICD-10-PCS; principal; 2018-10-03 11:00)
DX: K35.32 Acute appendicitis with perforation, localized peritonitis, and gangrene, without abscess (principal); E11.9 Type 2 diabetes mellitus without complications; E87.6 Hypokalemia
CPT/HCPCS: 36415; 71045; 74177; 80048; 80053; 80076; 81003; 82248; 82962; 83036; 83605; 83690; 85007; 85025; 85610; 85651; 85730; 86140; 87040; 87324; 94003; 94150; 96361; 96374; 99285; J1815; J2250; J2405; J2765; J8499